=== PATIENT | female | born 1930 | race Caucasian/White ===

== ENCOUNTER 2016-03-29 10:08 | Outpatient (RCR) | payer MEDICARE ==
[2016-01-17 09:06] LABS: INR 2.1 (0.8-1.4); PROTHROMBIN TIME PATIENT 23.4 SEC (12.2-14.7)
[2016-02-16 10:55] LABS: INR 1.9 (0.8-1.4); PROTHROMBIN TIME PATIENT 21.5 SEC (12.2-14.7)
[2016-03-01 09:45] LABS: INR 2.5 (0.8-1.4); PROTHROMBIN TIME PATIENT 26.6 SEC (12.2-14.7)
[~2016-03-29 10:08] MED LIST: ALPR.5T PO; AMLO5TAB2 PO; AMX500CIP PO; ASP81TEC PO; ATR20T PO; CEFD300C3 PO; ESCT10T PO; FURO20TA4 PO; LVT.05T PO; PANT40TA PO; PNT40TEC PO; POTA10CA43 PO; WRF2T PO; WRF5T PO; ZOLP5TAB6 PO; [UNRECOGNIZED DRUG - OTHER]
[2016-03-29 10:32] LABS: INR 2.6 (0.8-1.4); PROTHROMBIN TIME PATIENT 27.6 SEC (12.2-14.7)
== END 2016-04-16 | disposition home or self-care (01) ==
LOC: LAB 10:08
PROVIDERS: ATTEND Family Medicine
DX: I82.409 Acute embolism and thrombosis of unspecified deep veins of unspecified lower extremity (principal); I26.99 Other pulmonary embolism without acute cor pulmonale
CPT/HCPCS: 36415; 85610

== ENCOUNTER 2016-05-26 13:21 | Inpatient (IN) | payer MEDICARE ==
[~2016-05-26] VITALS: Ht 165.1 cm; Wt 72.6 kg
[2016-05-26 13:44] LABS: BASOPHILS % (AUTO) 0 % (0-10); EOSINOPHILS % (AUTO) 0 % (0-10); LYMPHOCYTES # (AUTO) 0.1 X 10^3 (1.0-4.0); LYMPHOCYTES % (AUTO) 1 % (12-44); MEAN CORPUSCULAR HEMOGLOBIN 32 PG (25-34); MEAN CORPUSCULAR HGB CONC 32 G/DL (32-36); MEAN CORPUSCULAR VOLUME 101 FL (80-99); MONOCYTES # (AUTO) 0.3 X 10^3 (0.0-1.0); MONOCYTES % (AUTO) 3 % (0-12); NEUTROPHILS # (AUTO) 8.6 X 10^3 (1.8-7.8); NEUTROPHILS % (AUTO) 96 % (42-75); PLATELET COUNT 150 10^3/uL (130-400); RED BLOOD COUNT 4.03 10^6/uL (4.35-5.85); RED CELL DISTRIBUTION WIDTH 14.4 % (10.0-14.5)
--- NOTE | 2016-05-26 13:44 | ED GI ---
General Chief Complaint: Abdominal/GI Problems Stated Complaint: N/V/D Source of Information: Patient, Family Exam Limitations: No Limitations History of Present Illness Time Seen By Provider: 13:40 Initial Comments The patient's an 86-year-old white female brought by ambulance. She reports that at about 0600 this morning she began to vomit followed very shortly by diarrhea. She has vomited many times mostly of yellow-green bile. There have been many liquid stools. Her family came to check on her and found her rather prostrate and on attempting to help her stand she became very faintly. She has not been exposed to anyone with known gastroenteritis. She reports that she had lemon meringue pie last night but that it was fresh Timing/Duration: 12 Hours Severity/Quality: Moderate Radiation: No Radiation Allergies and Home Medications Allergies Uncoded Allergies: MOLD (Allergy, Unknown, 12/22/10) Home Medications Aspirin 81 Mg Tab.chew, 81 MG PO DAILY, (Reported) Atorvastatin Calcium 20 Mg Tablet, 20 MG PO HS, (Reported) Buspirone HCl 5 Mg Tablet, 5 MG PO TID, (Reported) Furosemide 20 Mg Tablet, 20 MG PO DAILY, (Reported) Levothyroxine Sodium 50 Mcg Tablet, 50 MCG PO DAILY, (Reported) Pantoprazole Sodium 40 Mg Tablet.dr, 40 MG PO daily early, (Reported) Potassium Chloride 20 Meq Tab.er.prt, 20 MEQ PO DAILY, (Reported) Warfarin Sodium 5 Mg Tablet, 5 MG PO every other day, (Reported) Warfarin Sodium 6 Mg Tablet, 6 MG PO every other day, (Reported) Review of Systems Constitutional: see HPI EENTM: No Symptoms Reported Cardiovascular: No Symptoms Reported Gastrointestinal: Diarrhea, Nausea, Vomiting Genitourinary: No Symptoms Reported Musculoskeletal: no symptoms reported Skin: no symptoms reported Psychiatric/Neurological: No Symptoms Reported Endocrine: No Symptoms Reported Hematologic/Lymphatic: No Symptoms Reported Past Bfdgghu-Jtjtqi-Jvdbcy Hx Patient Social History Alcohol Use: Denies Use Recreational Drug Use: No Smoking Status: Never a Smoker 2nd Hand Smoke Exposure: No Recent Hopitalizations: No Immunizations Up To Date Tetanus Booster (TDap): Less than 5yrs Date of Pneumonia Vaccine: Dec 12, 2011 Date of Influenza Vaccine: Nov 07, 2011 Seasonal Allergies Seasonal Allergies: Yes Surgeries HX Surgeries: Yes Respiratory Hx Respiratory Disorders: Yes Respiratory Disorders: Pulmonary Embolism Cardiovascular Hx Cardiac Disorders: Yes Reproductive System Hx Reproductive Disorders: No Genitourinary Hx Genitourinary Disorders: No Gastrointestinal Hx Gastrointestinal Disorders: Yes Gastrointestinal Disorders: Gastroesophageal Reflux Musculoskeletal Hx Musculoskeletal Disorders: No Endocrine Hx Endocrine Disorders: Yes (TAKES THYROID MEDICATION) Endocrine Disorders: Hypothyroidsim HEENT HX ENT Disorders: No Hearing Impairment: Hard of Hearing, Hearing Aide Right, Hearing Aide Left Psychosocial Hx Psychiatric Problems: Yes Behavioral Health Disorders: Anxiety, Depression Blood Transfusions Hx Blood Disorders: Yes Family Medical History Significant Family History: No Pertinent Family Hx Physical Exam Vital Signs VS - Last 72 Hours, by Label 05/26/16 13:25 Temp 98.7 Pulse 89 Resp 18 B/P (MAP) 157/82 Pulse Ox 96 O2 Delivery Room Air Capillary Refill : General Appearance: moderate distress HEENT: normal ENT inspection Neck: full range of motion Respiratory: chest non-tender, lungs clear, normal breath sounds, no respiratory distress, no accessory muscle use Cardiovascular: normal peripheral pulses, regular rate, rhythm, no edema, no gallop, no JVD, no murmur Gastrointestinal: non tender, soft, no organomegaly, no pulsatile mass, abnormal bowel sounds (hypoactive) Extremities: normal range of motion, non-tender, normal inspection, no pedal edema, no calf tenderness, normal capillary refill, pelvis stable Neurologic/Psychiatric: dinkey engineer II-XII nml as tested, no motor/sensory deficits, alert, normal mood/affect, oriented x 3 Skin: normal color, warm/dry Lymphatic: no adenopathy Progress/Results/Core Measures Results/Orders Lab Results Laboratory Tests Test 05/26/16 13:30 Range/Units White Blood Count 9.0 4.3-11.0 10^3/uL Red Blood Count 4.03 L 4.35-5.85 10^6/uL Hemoglobin 12.9 11.5-16.0 G/DL Hematocrit 41 35-52 % Mean Corpuscular Volume 101 H 80-99 FL Mean Corpuscular Hemoglobin 32 25-34 PG Mean Corpuscular Hemoglobin Concent 32 32-36 G/DL Red Cell Distribution Width 14.4 10.0-14.5 % Platelet Count 150 130-400 10^3/uL Mean Platelet Volume 11.0 H 7.4-10.4 FL Neutrophils (%) (Auto) 96 H 42-75 % Lymphocytes (%) (Auto) 1 L 12-44 % Monocytes (%) (Auto) 3 0-12 % Eosinophils (%) (Auto) 0 0-10 % Basophils (%) (Auto) 0 0-10 % Neutrophils # (Auto) 8.6 H 1.8-7.8 X 10^3 Lymphocytes # (Auto) 0.1 L 1.0-4.0 X 10^3 Monocytes # (Auto) 0.3 0.0-1.0 X 10^3 Eosinophils # (Auto) 0.0 0.0-0.3 10^3/uL Basophils # (Auto) 0.0 0.0-0.1 10^3/uL Neutrophils % (Manual) 88 % Lymphocytes % (Manual) 2 % Monocytes % (Manual) 2 % Eosinophils % (Manual) 0 % Basophils % (Manual) 0 % Band Neutrophils 8 % Anisocytosis SLIGHT Macrocytosis SLIGHT Elliptocytes SLIGHT Sodium Level 144 135-145 MMOL/L Potassium Level 3.8 3.6-5.0 MMOL/L Chloride Level 112 H 98-107 MMOL/L Carbon Dioxide Level 22 21-32 MMOL/L Anion Gap 10 5-14 MMOL/L Blood Urea Nitrogen 16 7-18 MG/DL Creatinine 0.92 0.60-1.30 MG/DL Estimat Glomerular Filtration Rate 58 BUN/Creatinine Ratio 17 Glucose Level 150 H 70-105 MG/DL Calcium Level 8.7 8.5-10.1 MG/DL Total Bilirubin 0.4 0.1-1.0 MG/DL Aspartate Amino Transf (AST/SGOT) 21 5-34 U/L Alanine Aminotransferase (ALT/SGPT) 11 0-55 U/L Alkaline Phosphatase 69 40-136 U/L Total Protein 6.4 6.4-8.2 G/DL Albumin 4.2 3.2-4.5 G/DL My Orders Orders - ALEX QUIROZ MD Cbc With Automated Diff (05/26/16 13:22) Comprehensive Metabolic Panel (05/26/16 13:22) Ua Culture If Indicated (05/26/16 13:22) Ns Iv 1000 Ml (Sodium Chloride 0.9%) (05/26/16 13:45) Manual Differential (05/26/16 13:30) Vital Signs/I&O Vital Sign - Last 12Hours 05/26/16 13:25 Temp 98.7 Pulse 89 Resp 18 B/P (MAP) 157/82 Pulse Ox 96 O2 Delivery Room Air Departure Communication Progress Notes [address] Pringle who is on family practice call. Given the age and frailty and ongoing vomiting and diarrhea the patient will be admitted as an observation patient for IV fluids Impression Impression: Primary Impression: gastroenteritis Disposition: ADMITTED INPATIENT Condition: Stable/Unchanged Decision to Admit/Date: May 26, 2016 Time/Decision to Admit Time: 15:14 Departure-Patient Inst. Referrals: ANDREA DUVALL DO (PCP/Family) Primary Care Physician ALEX QUIROZ MD May 26, 2016 13:44
[2016-05-26] MEDS ORDERED: NS IV 1000 ML 1,000 ML IV SCH (13:45)
[2016-05-26 13:59] LABS: ALBUMIN 4.2 G/DL (3.2-4.5); BILIRUBIN,TOTAL 0.4 MG/DL (0.1-1.0); CALCIUM 8.7 MG/DL (8.5-10.1); CREATININE SERUM 0.92 MG/DL (0.60-1.30); POTASSIUM 3.8 MMOL/L (3.6-5.0); TOTAL PROTEIN 6.4 G/DL (6.4-8.2)
[2016-05-26] MEDS ORDERED: WARF6TAB6 PO (14:03)
[2016-05-26] MEDS ORDERED: PANT40TA3 PO (14:03)
[2016-05-26] MEDS ORDERED: ATOR20TA66 PO (14:03)
[2016-05-26] MEDS ORDERED: BUSP5TAB59 PO (14:03)
[2016-05-26] MEDS ORDERED: FURO20TA4 PO (14:03)
[2016-05-26] MEDS ORDERED: LEVO50TA6 PO (14:03)
[2016-05-26] MEDS ORDERED: POTA20TA8 PO (14:03)
[2016-05-26] MEDS ORDERED: ASPI-999 PO (14:03)
[2016-05-26] MEDS ORDERED: WARF-48 PO (14:03)
[2016-05-26 14:13] LABS: ANISOCYTOSIS SLIGHT; BAND NEUTROPHILS 8 %; BASOPHILS % (MANUAL) 0 %; EOSINOPHILS % (MANUAL) 0 %; LYMPHOCYTES % (MANUAL) 2 %; NEUTROPHILS % (MANUAL) 88 %
[2016-05-26] MEDS ORDERED: CATHETER FLUSH 10 ML SYR IV PRN (16:15)
[2016-05-26] MEDS ORDERED: PROMETHAZINE INJ 25 MG/ML (PHENERGAN) AMP IV PRN (16:15)
[2016-05-26 16:20] VITALS: BP 158/75
[2016-05-26] MEDS: LACTATED RINGERS 1,000 ML IV SCH (16:25)
--- NOTE | 2016-05-26 17:09 | History & Physical ---
History of Present Illness History of Present Illness Reason for visit/HPI 86-year-old female with history of DVT and pulmonary embolism admitted on under observation from the ER. patient presented in the ER via EMS for recent fall at her home. No known head trauma. Patient's stepdaughter found her and was concerned. She reports since 6 a.m. today she's felt nauseated and vomited multiple times of bilious in color no blood no diarrhea. Patient denies any chest pain or trouble breathing. Denies any head trauma. Patient is on warfarin for history of DVTs and pulmonary embolisms of which she reports she was here back in February and was here for a month for treatment on the pulmonary embolisms and DVTs. She is unsure what her last INR was. Patient did eat lemon meringue pie that she said was fresh but patient did wonder about food poisoning. Patient reports no confusion and family verifies this. But after a dose of Phenergan patient was a little more confused talking. Phenergan stopped at this time and will use Zofran for any further nausea. Will monitor overnight and currently her lab work was unimpressive and did not meet inpatient criteria. Date of Admission May 26, 2016 at 15:32 I consulted on this patient on 05/26/16 17:00 Attending Physician Romel Fajardo MD Admitting Physician Vickey Azar DO Consult Allergies and Home Medications Allergies Uncoded Allergies: MOLD (Allergy, Unknown, 12/22/10) Home Medications Aspirin 81 Mg Tab.chew, 81 MG PO DAILY, (Reported) Atorvastatin Calcium 20 Mg Tablet, 20 MG PO HS, (Reported) Buspirone HCl 5 Mg Tablet, 5 MG PO TID, (Reported) Furosemide 20 Mg Tablet, 20 MG PO DAILY, (Reported) Levothyroxine Sodium 50 Mcg Tablet, 50 MCG PO DAILY, (Reported) Pantoprazole Sodium 40 Mg Tablet.dr, 40 MG PO daily early, (Reported) Potassium Chloride 20 Meq Tab.er.prt, 20 MEQ PO DAILY, (Reported) Warfarin Sodium 5 Mg Tablet, 5 MG PO every other day, (Reported) Warfarin Sodium 6 Mg Tablet, 6 MG PO every other day, (Reported) Past Jeteaey-Iwalcb-Eizlsq Hx Patient Social History Alcohol Use: Denies Use Recreational Drug Use: No Smoking Status: Never a Smoker 2nd Hand Smoke Exposure: No Recent Foreign Travel: No Contact w/other who traveled: No Recent Hopitalizations: No Recent Infectious Disease Expo: No Immunizations Up To Date Tetanus Booster (TDap): Less than 5yrs Date of Pneumonia Vaccine: Dec 12, 2011 Date of Influenza Vaccine: Nov 07, 2011 Seasonal Allergies Seasonal Allergies: Yes Surgeries HX Surgeries: Yes Respiratory Hx Respiratory Disorders: Yes Cardiovascular Hx Cardiovascular Disorders: Yes Reproductive System Hx Reproductive Disorders: No Genitourinary Hx Genitourinary Disorders: No Gastrointestinal Hx Gastrointestinal Disorders: Yes Gastrointestinal Disorders: Gastroesophageal Reflux Musculoskeletal Hx Musculoskeletal Disorders: No Endocrine Hx Endocrine Disorders: Yes (TAKES THYROID MEDICATION) Endocrine Disorders: Hypothyroidsim HEENT HX ENT Disorders: No Hearing Impairment: Hard of Hearing, Hearing Aide Right, Hearing Aide Left Psychosocial Hx Psychiatric Problems: Yes Behavioral Health Disorders: Anxiety, Depression Blood Transfusions Hx Blood Disorders: Yes Family Medical History Significant Family History: No Pertinent Family Hx Review of Systems Review of Systems General: No Chills, No Night Sweats HEENT: Head Aches, No Visual Changes Pulmonary: No Dyspnea, No Cough Cardiovascular: No: Chest Pain, Palpitations Gastrointestinal: Nausea, Vomiting, No: Abdominal Pain Genitourinary: No Dysuria, No Frequency Musculoskeletal: No: arm pain, leg pain Neurological: Confusion (after phenergan injection.), Weakness Physical Exam Vital Signs Vital Sign - Last 12Hours 05/26/16 13:25 Temp 98.7 Pulse 89 Resp 18 B/P (MAP) 157/82 Pulse Ox 96 O2 Delivery Room Air Capillary Refill : Less Than 3 Seconds General Appearance: No Apparent Distress, WD/WN HEENT: PERRL/EOMI Neck: Non Tender, Supple Respiratory: Chest Non Tender, Lungs Clear Cardiovascular: Regular Rate, Rhythm Gastrointestinal: Normal Bowel Sounds, Non Tender, Soft Rectal: Deferred Extremity: Normal Capillary Refill, Non Tender, No Calf Tenderness, Pedal Edema (1+) Neurologic/Psychiatric: Alert, Oriented x3, No Motor/Sensory Deficits, Normal Mood/Affect Skin: Warm/Dry Lymphatic: No Adenopathy Assessment/Plan Assessment/Plan Assessment/Plan 86 yo F admitted 05/26/16 nausea/vomiting - IVF, zofran prn monitor overnight weakness/fall- PT/OT h/o DVT, pulmonary embolism- continue warfarin- pt will use her own medication. hypothyroidism- continue levothyroxine. DVT ppx: on warfarin Dispo: monitor overnight- plan was to discharge to home tomorrow as she does not meet inpt criteria. Family at bedside do not feel safe with her being discharged to home as she fell yesterday. Problems: Clinical Quality Measures DVT/VTE Risk/Contraindication: Contraindications-Pharm: Other *list below* Other: on coumadin ROMEL FAJARDO MD May 26, 2016 17:09
[2016-05-26 19:45] VITALS: BP 142/65
[2016-05-26] MEDS: ACETAMINOPHEN 500 MG TAB (TYLENOL) PO PRN (20:28)
[2016-05-26] MEDS: ZOLPIDEM 5 MG (AMBIEN) TAB PO SCH (21:00)
[2016-05-26 23:55] VITALS: BP 130/70
[2016-05-27] MEDS: LACTATED RINGERS 1,000 ML IV SCH ×4 (01:04→21:33)
[2016-05-27 04:00] VITALS: BP 119/59
[2016-05-27 05:06] LABS: INR 4.4 (0.8-1.4); PROTHROMBIN TIME PATIENT 42.1 SEC (12.2-14.7)
[2016-05-27 05:12] LABS: CALCIUM 8.3 MG/DL (8.5-10.1); CREATININE SERUM 0.9 MG/DL (0.60-1.30); POTASSIUM 3.9 MMOL/L (3.6-5.0)
--- NOTE | 2016-05-27 07:05 | Progress Note (SOAP) ---
Subjective Subjective 86 yo F with no other overnight events besides the Fever overnight- APAP given which helped a little bit. Pt is wearing a fleece long shirt and pants with covers on her. Will have her change into a hospital gown. No apparent sign of illness on exam. WBC normal. Denies dysuria, urine is clean. Pt denies feeling febrile. She is advancing her diet and doing well. Review of Systems General: No Chills, No Night Sweats HEENT: Head Aches (resolved), No Visual Changes Pulmonary: No Dyspnea, No Cough Cardiovascular: No: Chest Pain, Palpitations Gastrointestinal: No: Abdominal Pain, Nausea, Vomiting Genitourinary: No Dysuria, No Frequency Musculoskeletal: No: arm pain, leg pain Neurological: Weakness, No: Confusion Objective Exam Vital Signs Vital Signs Date Time Temp Pulse Resp B/P (MAP) Pulse Ox O2 Delivery O2 Flow Rate FiO2 05/27/16 11:56 98.4 70 20 134/70 95 Room Air 05/27/16 09:21 99.5 05/27/16 08:02 101.0 05/27/16 07:50 101.4 88 20 109/66 92 Room Air 05/27/16 04:00 99.4 80 17 119/59 92 Room Air 05/26/16 23:55 100.7 87 16 130/70 93 Room Air 05/26/16 21:00 101.2 05/26/16 20:28 101.8 05/26/16 19:45 101.8 83 16 142/65 94 Room Air 05/26/16 16:20 100.6 92 16 158/75 95 Room Air 05/26/16 16:00 98.7 90 18 98 05/26/16 13:25 98.7 89 18 157/82 96 Room Air I & O 05/27/16 07:00 Intake Total 1220 ml Output Total 250 ml Balance 970 ml General Appearance: No Apparent Distress, WD/WN HEENT: PERRL/EOMI Neck: Non Tender, Supple Respiratory: Chest Non Tender, Lungs Clear Cardiovascular: Regular Rate, Rhythm Gastrointestinal: Normal Bowel Sounds, Non Tender, Soft Rectal: Deferred Extremity: Normal Capillary Refill, Non Tender, No Calf Tenderness, Pedal Edema (trace) Neurologic/Psychiatric: Alert, Oriented x3, No Motor/Sensory Deficits, Normal Mood/Affect Skin: Warm/Dry Lymphatic: No Adenopathy Results Lab Laboratory Tests 05/26/16 13:30: White Blood Count 9.0, Red Blood Count 4.03L, Hemoglobin 12.9, Hematocrit 41, Mean Corpuscular Volume 101H, Mean Corpuscular Hemoglobin 32, Mean Corpuscular Hemoglobin Concent 32, Red Cell Distribution Width 14.4, Platelet Count 150, Mean Platelet Volume 11.0H, Neutrophils (%) (Auto) 96H, Lymphocytes (%) (Auto) 1L, Monocytes (%) (Auto) 3, Eosinophils (%) (Auto) 0, Basophils (%) (Auto) 0, Neutrophils # (Auto) 8.6H, Lymphocytes # (Auto) 0.1L, Monocytes # (Auto) 0.3, Eosinophils # (Auto) 0.0, Basophils # (Auto) 0.0, Neutrophils % (Manual) 88, Lymphocytes % (Manual) 2, Monocytes % (Manual) 2, Eosinophils % (Manual) 0, Basophils % (Manual) 0, Band Neutrophils 8, Anisocytosis SLIGHT, Macrocytosis SLIGHT, Elliptocytes SLIGHT, Sodium Level 144, Potassium Level 3.8, Chloride Level 112H, Carbon Dioxide Level 22, Anion Gap 10, Blood Urea Nitrogen 16, Creatinine 0.92, Estimat Glomerular Filtration Rate 58, BUN/Creatinine Ratio 17 , Glucose Level 150H, Calcium Level 8.7, Total Bilirubin 0.4, Aspartate Amino Transf (AST/SGOT) 21, Alanine Aminotransferase (ALT/SGPT) 11, Alkaline Phosphatase 69, Total Protein 6.4, Albumin 4.2 05/27/16 04:10: Sodium Level 144, Potassium Level 3.9, Chloride Level 113H, Carbon Dioxide Level 21, Anion Gap 10, Blood Urea Nitrogen 12, Creatinine 0.90, Estimat Glomerular Filtration Rate 60, BUN/Creatinine Ratio 13, Glucose Level 90, Calcium Level 8.3L, Prothrombin Time 42.1H, INR Comment 4.4H Assessment/Plan Assessment/Plan Assessment/Plan 86 yo F admitted 05/26/16 nausea/vomiting - IVF, zofran prn monitor overnight weakness/fall- PT ordered - patient did well - PT reports pt is independent with activities. No needs for SNU/Rehab h/o DVT, pulmonary embolism- on warfarin- pt will use her own medication. hold warfarin due to elevated INR Supratherapeutic INR- 4.4- hold warfarin. repeat INR in AM hypothyroidism- continue levothyroxine Fever- apap- monitor for infection, UA negative, recent shingles dx- will monitor- we had her change into a hospital gown as she was wearing a fleece outfit and had the covers on her. DVT ppx: on warfarin Dispo: monitor Family at bedside do not feel safe with her being discharged to home as she lives alone. If INR improves tomorrow closer to 3 and she is afebrile will consider discharging to home. Problems: Clinical Quality Measures DVT/VTE Risk/Contraindication: Risk Factor Score Per Nursin RFS Level Per Nursing on Admit: 4+=Very High Contraindications-Pharm: Other *list below* Other: on coumadin JOSE FAJARDO MD May 27, 2016 07:05
[2016-05-27 07:10] LABS: BASOPHILS % (AUTO) 0 % (0-10); EOSINOPHILS % (AUTO) 0 % (0-10); LYMPHOCYTES # (AUTO) 0.5 X 10^3 (1.0-4.0); LYMPHOCYTES % (AUTO) 10 % (12-44); MEAN CORPUSCULAR HEMOGLOBIN 32 PG (25-34); MEAN CORPUSCULAR HGB CONC 32 G/DL (32-36); MEAN CORPUSCULAR VOLUME 102 FL (80-99); MEAN PLATELET VOLUME 11.9 FL (7.4-10.4); MONOCYTES # (AUTO) 0.4 X 10^3 (0.0-1.0); MONOCYTES % (AUTO) 8 % (0-12); NEUTROPHILS # (AUTO) 4.5 X 10^3 (1.8-7.8); NEUTROPHILS % (AUTO) 82 % (42-75); PLATELET COUNT 117 10^3/uL (130-400); RED BLOOD COUNT 3.49 10^6/uL (4.35-5.85); RED CELL DISTRIBUTION WIDTH 14.7 % (10.0-14.5); WHITE BLOOD COUNT 5.5 10^3/uL (4.3-11.0)
[2016-05-27 07:50] VITALS: BP 109/66
[2016-05-27] MEDS: ACETAMINOPHEN 500 MG TAB (TYLENOL) PO PRN ×2 (08:02→19:46)
--- NOTE | 2016-05-27 09:25 | Physical Therapy Evaluation ---
PT Evaluation-General Medical Diagnosis Admission Date May 26, 2016 at 15:32 Medical Diagnosis: gastroenteritis/dehydration Onset Date: May 25, 2016 Therapy Diagnosis Therapy Diagnosis: debility Height/Weight Height (Feet): 5 Height (Inches): 5.00 Weight (Pounds): 160 Weight (Ounces): 0.0 Precautions Precautions/Isolations: Standard Precautions Referral Physician: Pino Reason for Referral: Evaluation/Treatment Medical History Pertinent Medical History: CAD Additional Medical History DVT/PE recent hospital stay Current History 1 day of N&V at home with LOC per family report Reviewed History: Yes Social History Home: Single Level Current Living Status: Alone Entry Into Home: Stairs With Railing PT Steps Into Home: 2 Prior/Core FIM Prior Level of Function Functional [place] Measure 0=Not Assessed/NA 4=Minimal Assistance 1=Total Assistance 5=Supervision or Setup 2=Maximal Assistance 6=Modified [place] 3=Moderate Assistance 7=Complete [place] Bed Mobility: 7 Transfers (B,C,W/C) (FIM): 7 Gait: 7 PT Evaluation-Current Subjective Patient agrees to PT. Patient states, "What a difference a day makes. I feel better." Pain Numeric Pain Scale: 0-No Pain Location: No Pain Reported Objective Patient Orientation: Normal For Age Problem Solving: Fair Attachments: IV ROM/Strength ROM Lower Extremities bilateral LE WFL Strenght Lower Extremities bilateral LE WFL Integumentary/Posture Integumentary refer to nursing notes Bowel Incontinence: No Bladder Incontinence: No Posture WNL Neuromuscular (Tone, Coordination, Reflexes) grossly intact Sensory Vision: Functional Hearing: Hearing Aid/Aides Sensation Right Lower Extremit: Intact Sensation Left Lower Extremity: Intact Transfers Functional [place] Measure 0=Not Assessed/NA 4=Minimal Assistance 1=Total Assistance 5=Supervision or Setup 2=Maximal Assistance 6=Modified [place] 3=Moderate Assistance 7=Complete [place] Transfers (B, C, W/C) (FIM): 7 Scootin Rollin Supine to/from Sit: 7 Sit to/from Stand: 7 Gait Mode of Locomotion: Walk Anticipated Mode of Locomotion: Walk Gait (FIM): 7 Distance (FIM): 3=150 ft Distance: 400' Gait Level of Assist: 7 Gait Assistive Device: None Comments/Gait Description safe and functional Balance Sitting Static: Normal Sitting Dynamic: Normal Standing Static: Normal Standing Dynamic: Normal Assessment/Needs 86 [facility]. [facility] and does not require skilled therapy intervention. Rehab Potential: Good PT Plan Treatment/Plan Treatment Plan: Discontinue PT Pt/Family Agrees w/Plan: Yes Discharge Recommendations Therapy D/C Recommendations: Home Independently Time/GCodes Time In: 845 Time Out: 900 Total Billed Treatment Time: 15 Total Billed Treatment 1 visit EVLowC 15 min G Codes Necessary: Yes PT/OT Therapy GCodes Therapy Functional Limitation: Physical Therapy Test(s)/Tool used to determine: Level of Assistance Scale Functional Limitation-Current Charge Code: MOBCUR Modifier: CH Functional Limitation-Goal Charge Code: MOBGOAL Modifier: CH Functional Limitation-D/C Charge Codes: MOBDC Modifier: CH IVON DE LEÓN PT May 27, 2016 09:25
[2016-05-27 09:26] LABS: BILIRUBIN,URINE NEGATIVE (NEGATIVE); KETONES,URINE NEGATIVE (NEGATIVE); LEUKOCYTE ESTERASE ,URINE NEGATIVE (NEGATIVE); NITRITE,URINE NEGATIVE (NEGATIVE); PH,URINE 5 (5-9); PROTEIN,URINE 2+ (NEGATIVE); UROBILINOGEN,URINE NORMAL (NORMAL)
[2016-05-27 09:59] LABS: WBC,URINE 0 /HPF
[2016-05-27] MEDS ORDERED: PATIENT MAY USE OWN MEDS, ALL MC SCH (10:45)
[2016-05-27] MEDS ORDERED: ASPIRIN 81 MG CHEW (CHILDREN'S ASA) PO SCH (11:00)
[2016-05-27] MEDS ORDERED: LEVOTHYROXINE 50 MCG (LEVOTHROID) TAB PO SCH (11:00)
[2016-05-27] MEDS: LEVOTHYROXINE 50 MCG (LEVOTHROID) TAB PO SCH (11:45)
[2016-05-27] MEDS: ASPIRIN E.C. 81 MG (ECOTRIN) TAB PO SCH (11:46)
[2016-05-27 11:56] VITALS: BP 134/70
[2016-05-27] MEDS ORDERED: busPIRone 5 MG (BUSPAR) TAB PO SCH (13:00)
[2016-05-27] MEDS: busPIRone 5 MG (BUSPAR) TAB PO SCH ×2 (14:04→21:33)
[2016-05-27 15:50] VITALS: BP 134/61
[2016-05-27 19:45] VITALS: BP 149/66
[2016-05-27] MEDS: ONDANSETRON 8 MG (ZOFRAN) ORAL DISSOLVE TAB PO PRN (19:46)
[2016-05-27] MEDS: ZOLPIDEM 5 MG (AMBIEN) TAB PO SCH (20:47)
[2016-05-27 22:45] VITALS: BP 178/80
[2016-05-28 04:00] VITALS: BP 163/77
[2016-05-28 04:45] LABS: INR 3.8 (0.8-1.4); PROTHROMBIN TIME PATIENT 37.6 SEC (12.2-14.7)
[2016-05-28] MEDS: LEVOTHYROXINE 50 MCG (LEVOTHROID) TAB PO SCH (05:33)
[2016-05-28] MEDS: LACTATED RINGERS 1,000 ML IV SCH ×2 (08:13→16:10)
[2016-05-28] MEDS: ASPIRIN E.C. 81 MG (ECOTRIN) TAB PO SCH (08:13)
[2016-05-28] MEDS: busPIRone 5 MG (BUSPAR) TAB PO SCH ×3 (08:13→20:29)
[2016-05-28 08:30] VITALS: BP 165/74
--- NOTE | 2016-05-28 10:33 | Progress Note (SOAP) ---
Subjective Subjective 86 yo F who developed diarrhea yesterday evening x 6 bowel movements- IV access was regained with IVF started again and diet backed off- a few hours after eating she developed the diarrhea. Fevers have decreased. Pt feels like she is doing better besides the diarrhea. She does not want to stay much longer. INR improving. Review of Systems General: No Chills, No Night Sweats HEENT: Head Aches (better), No Visual Changes Pulmonary: No Dyspnea, No Cough Cardiovascular: No: Chest Pain, Palpitations Gastrointestinal: Diarrhea, Nausea, No: Abdominal Pain, Constipation Genitourinary: No Dysuria, No Frequency Musculoskeletal: No: arm pain, leg pain Neurological: Confusion (after phenergan injection.), Weakness Objective Exam Vital Signs Vital Signs Date Time Temp Pulse Resp B/P (MAP) Pulse Ox O2 Delivery O2 Flow Rate FiO2 05/28/16 09:00 Room Air 05/28/16 08:30 98.2 87 18 165/74 97 Room Air 05/28/16 04:00 97.8 83 18 163/77 97 Room Air 05/27/16 22:45 98.6 73 16 178/80 93 Room Air 05/27/16 20:35 99.2 05/27/16 20:16 99.2 05/27/16 19:46 100.8 05/27/16 19:45 100.8 77 16 149/66 97 Room Air 05/27/16 15:50 99.7 75 16 134/61 92 Room Air 05/27/16 11:56 98.4 70 20 134/70 95 Room Air I & O 05/28/16 07:00 Intake Total 1970 ml Output Total 650 ml Balance 1320 ml General Appearance: No Apparent Distress, WD/WN HEENT: PERRL/EOMI Neck: Non Tender, Supple Respiratory: Chest Non Tender, Lungs Clear Cardiovascular: Regular Rate, Rhythm Gastrointestinal: Non Tender, Soft, Abnormal Bowel Sounds (a little hyperactive ) Rectal: Deferred Extremity: Normal Capillary Refill, Non Tender, No Calf Tenderness, Pedal Edema (1+) Neurologic/Psychiatric: Alert, Oriented x3, No Motor/Sensory Deficits, Normal Mood/Affect Skin: Warm/Dry Lymphatic: No Adenopathy Results Lab Laboratory Tests 05/28/16 04:08: Prothrombin Time 37.6H, INR Comment 3.8H Microbiology 05/27/16 C. difficile [facility] Antigen & Toxins - Final, Complete Assessment/Plan Assessment/Plan Assessment/Plan 86 yo F admitted 05/26/16 nausea/vomiting - IVF, zofran prn monitor overnight weakness/fall- PT ordered - patient did well - PT reports pt is independent with activities. No needs for SNU/Rehab h/o DVT, pulmonary embolism- on warfarin- pt will use her own medication. hold warfarin due to elevated INR Supratherapeutic INR- - hold warfarin. repeat INR in AM hypothyroidism- continue levothyroxine Fever- apap- monitor for infection, UA negative, Diarrhea- ivf, ADAT- C.diff negative- monitor stools. DVT ppx: on warfarin Dispo: monitor Continue to hold warfarin until INR below 3. Monitor bowel movements- Cdiff negative. Problems: Clinical Quality Measures DVT/VTE Risk/Contraindication: Risk Factor Score Per Nursin RFS Level Per Nursing on Admit: 4+=Very High Contraindications-Pharm: Other *list below* Other: on coumadin JOSE FAJARDO MD May 28, 2016 10:33
[2016-05-28 12:00] VITALS: BP 138/78
[2016-05-28 16:04] VITALS: BP 165/79
[2016-05-28 20:05] VITALS: BP 166/90
[2016-05-28] MEDS: ZOLPIDEM 5 MG (AMBIEN) TAB PO SCH (20:28)
[2016-05-28] MEDS: ACETAMINOPHEN 500 MG TAB (TYLENOL) PO PRN (20:33)
[2016-05-29] VITALS: BP 155/80
[2016-05-29] MEDS: LACTATED RINGERS 1,000 ML IV SCH ×3 (00:48→17:41)
[2016-05-29] MEDS: LEVOTHYROXINE 50 MCG (LEVOTHROID) TAB PO SCH (05:42)
[2016-05-29] MEDS: ONDANSETRON 8 MG (ZOFRAN) ORAL DISSOLVE TAB PO PRN (05:42)
[2016-05-29 06:13] LABS: PROTHROMBIN TIME PATIENT 31.2 SEC (12.2-14.7)
[2016-05-29 07:31] LABS: MEAN PLATELET VOLUME 11.2 FL (7.4-10.4); RED BLOOD COUNT 3.96 10^6/uL (4.35-5.85); RED CELL DISTRIBUTION WIDTH 14.2 % (10.0-14.5); WHITE BLOOD COUNT 4.4 10^3/uL (4.3-11.0)
--- NOTE | 2016-05-29 07:37 | Progress Note (SOAP) ---
Subjective Subjective/Events-last exam patient had 3 diarrhea stools this a.m. Patient feels nauseous. No more syncope. Diagnosis gastroenteritis. Dehydration. Hypertension monitoring Objective Exam Vital Signs Date Time Temp Pulse Resp B/P (MAP) Pulse Ox O2 Delivery O2 Flow Rate FiO2 05/29/16 00:00 98.7 74 18 155/80 94 Room Air 05/28/16 20:05 98.7 71 18 166/90 96 Room Air 05/28/16 16:04 98.5 73 18 165/79 94 Room Air 05/28/16 12:00 99.5 71 18 138/78 94 Room Air 05/28/16 09:00 Room Air 05/28/16 08:30 98.2 87 18 165/74 97 Room Air I & O 05/29/16 07:00 Intake Total 3050 ml Output Total 670 ml Balance 2380 ml Capillary Refill : Less Than 3 SecondsLess Than 3 Seconds General Appearance: No Apparent Distress, WD/WN HEENT: Normal ENT Inspection Neck: Full Range of Motion, Normal Inspection Respiratory: Chest Non Tender, Lungs Clear, Normal Breath Sounds, No Accessory Muscle Use, No Respiratory Distress Cardiovascular: Regular Rate, Rhythm, No Murmur Gastrointestinal: non tender, soft Results Lab Laboratory Tests 05/29/16 05:50 Laboratory Tests 05/29/16 05:50: White Blood Count 4.4, Red Blood Count 3.96L, Hemoglobin 12.7, Hematocrit 40, Mean Corpuscular Volume 101H, Mean Corpuscular Hemoglobin 32, Mean Corpuscular Hemoglobin Concent 32, Red Cell Distribution Width 14.2, Platelet Count 131, Mean Platelet Volume 11.2H, Prothrombin Time 31.2H, INR Comment 3.0H Microbiology 05/27/16 C. difficile [facility] Antigen & Toxins - Final, Complete Assessment/Plan Assessment/Plan Assess & Plan/Chief Complaint acute gastroenteritis. Dehydration. Patient feeling good this morning had 3 episodes of diarrhea and nauseous. Thrombocytopenia resolving. Hypertension new-onset Clinical Quality Measures DVT/VTE Risk/Contraindication: Risk Factor Score Per Nursin RFS Level Per Nursing on Admit: 4+=Very High Contraindications-Pharm: Other *list below* Other: on coumadin ANDREA DUVALL DO May 29, 2016 07:37
[2016-05-29 07:43] LABS: ANION GAP 10 MMOL/L (5-14); BLOOD UREA NITROGEN 6 MG/DL (7-18); BUN/CREATININE RATIO 7; CALCIUM 8.5 MG/DL (8.5-10.1); CARBON DIOXIDE 20 MMOL/L (21-32); CHLORIDE 111 MMOL/L (98-107); CREATININE SERUM 0.83 MG/DL (0.60-1.30); GFR ESTIMATED > 60; GLUCOSE 91 MG/DL (70-105); POTASSIUM 3.9 MMOL/L (3.6-5.0); SODIUM 141 MMOL/L (135-145)
[2016-05-29 08:00] VITALS: BP 164/80
[2016-05-29] MEDS: busPIRone 5 MG (BUSPAR) TAB PO SCH ×3 (08:22→20:12)
[2016-05-29] MEDS: ASPIRIN E.C. 81 MG (ECOTRIN) TAB PO SCH (08:22)
[2016-05-29] MEDS ORDERED: ZOLP5TAB PO (10:29)
[2016-05-29] MEDS ORDERED: VIT1CAPS14 PO (10:35)
[2016-05-29] MEDS ORDERED: ONDANSETRON 4 MG (ZOFRAN) ORAL DISSOLVE TAB PO PRN (12:15)
[2016-05-29] MEDS: lisINopril 10 MG (PRINIVIL) TAB PO SCH (15:36)
[2016-05-29 16:34] VITALS: BP 152/79
[2016-05-29] MEDS: ZOLPIDEM 5 MG (AMBIEN) TAB PO SCH (21:28)
[2016-05-30 00:05] VITALS: BP_SYST 135; BP_SYST 174; BP_DIAS 62; BP_DIAS 75
[2016-05-30] MEDS: LACTATED RINGERS 1,000 ML IV SCH ×3 (03:45→23:46)
[2016-05-30] MEDS: LEVOTHYROXINE 50 MCG (LEVOTHROID) TAB PO SCH (05:34)
[2016-05-30 06:17] LABS: MEAN PLATELET VOLUME 10.8 FL (7.4-10.4); RED BLOOD COUNT 3.93 10^6/uL (4.35-5.85); RED CELL DISTRIBUTION WIDTH 13.9 % (10.0-14.5); WHITE BLOOD COUNT 3.5 10^3/uL (4.3-11.0)
[2016-05-30 06:32] LABS: INR 2.5 (0.8-1.4); PROTHROMBIN TIME PATIENT 26.6 SEC (12.2-14.7)
[2016-05-30 06:33] LABS: ANION GAP 11 MMOL/L (5-14); BLOOD UREA NITROGEN 5 MG/DL (7-18); BUN/CREATININE RATIO 6; CALCIUM 8.6 MG/DL (8.5-10.1); CARBON DIOXIDE 21 MMOL/L (21-32); CHLORIDE 113 MMOL/L (98-107); GFR ESTIMATED > 60; GLUCOSE 92 MG/DL (70-105); POTASSIUM 3.5 MMOL/L (3.6-5.0); SODIUM 145 MMOL/L (135-145)
--- NOTE | 2016-05-30 07:47 | Progress Note (SOAP) ---
Subjective Subjective/Events-last exam patient feeling better today. No diarrhea or since yesterday at 3 p.m. Patient not eating much. Patient off milk products. Patient wants to go home today may not be ready. Patient may need another 24 hours but she wants to go home Objective Exam Vital Signs Date Time Temp Pulse Resp B/P (MAP) Pulse Ox O2 Delivery O2 Flow Rate FiO2 05/30/16 00:05 98.1 70 20 135/62 97 Room Air 05/29/16 20:20 Room Air 05/29/16 16:34 98.9 82 22 152/79 97 Room Air 05/29/16 09:00 Room Air 05/29/16 08:00 98.6 81 20 164/80 95 Room Air I & O 05/30/16 07:00 Intake Total 4465 ml Output Total 3225 ml Balance 1240 ml Capillary Refill : Less Than 3 SecondsLess Than 3 Seconds General Appearance: No Apparent Distress, WD/WN HEENT: Normal ENT Inspection Neck: Normal Inspection Respiratory: Chest Non Tender, Lungs Clear, No Accessory Muscle Use, No Respiratory Distress Cardiovascular: Regular Rate, Rhythm, No Murmur Gastrointestinal: non tender, soft Results Lab Laboratory Tests 05/30/16 06:10 Laboratory Tests 05/30/16 06:10: White Blood Count 3.5L, Red Blood Count 3.93L, Hemoglobin 12.6, Hematocrit 39, Mean Corpuscular Volume 100H, Mean Corpuscular Hemoglobin 32, Mean Corpuscular Hemoglobin Concent 32, Red Cell Distribution Width 13.9, Platelet Count 133, Mean Platelet Volume 10.8H, Prothrombin Time 26.6H, INR Comment 2.5H, Sodium Level 145, Potassium Level 3.5L, Chloride Level 113H, Carbon Dioxide Level 21, Anion Gap 11, Blood Urea Nitrogen 5L, Creatinine 0.80, Estimat Glomerular Filtration Rate > 60, BUN/Creatinine Ratio 6, Glucose Level 92, Calcium Level 8.6 Microbiology 05/27/16 C. difficile GDH Antigen & Toxins - Final, Complete Assessment/Plan Assessment/Plan Assess & Plan/Chief Complaint acute gastroenteritis. Dehydration. Patient feeling good this morning had 3 episodes of diarrhea and nauseous. Thrombocytopenia resolving. Hypertension new-onset. . . Acute gastroenteritis. Dehydration. Patient feel she is doing better. Patient did not have any diarrhea today. Patient did not each much Nurse to call at 2 o'clock to see how patient is doing Clinical Quality Measures DVT/VTE Risk/Contraindication: Risk Factor Score Per Nursin RFS Level Per Nursing on Admit: 4+=Very High Contraindications-Pharm: Other *list below* Other: on coumadin ANDREA DUVALL DO May 30, 2016 07:46
[2016-05-30 08:00] VITALS: BP 164/77
[2016-05-30] MEDS: lisINopril 10 MG (PRINIVIL) TAB PO SCH (08:15)
[2016-05-30] MEDS: busPIRone 5 MG (BUSPAR) TAB PO SCH ×3 (08:15→20:00)
[2016-05-30] MEDS: ASPIRIN E.C. 81 MG (ECOTRIN) TAB PO SCH (08:16)
[2016-05-30 16:28] VITALS: BP 141/70
[2016-05-30] MEDS: ZOLPIDEM 5 MG (AMBIEN) TAB PO SCH (20:00)
[2016-05-31 00:31] VITALS: BP 138/62
[2016-05-31 05:00] LABS: MEAN PLATELET VOLUME 10.9 FL (7.4-10.4); RED BLOOD COUNT 3.72 10^6/uL (4.35-5.85); RED CELL DISTRIBUTION WIDTH 13.9 % (10.0-14.5); WHITE BLOOD COUNT 3.7 10^3/uL (4.3-11.0)
[2016-05-31 05:10] LABS: INR 1.5 (0.8-1.4); PROTHROMBIN TIME PATIENT 17.4 SEC (12.2-14.7)
[2016-05-31 05:16] LABS: ANION GAP 9 MMOL/L (5-14); BLOOD UREA NITROGEN 8 MG/DL (7-18); BUN/CREATININE RATIO 10; CALCIUM 8.5 MG/DL (8.5-10.1); CARBON DIOXIDE 25 MMOL/L (21-32); CHLORIDE 112 MMOL/L (98-107); CREATININE SERUM 0.81 MG/DL (0.60-1.30); GFR ESTIMATED > 60; GLUCOSE 96 MG/DL (70-105); POTASSIUM 3.5 MMOL/L (3.6-5.0); SODIUM 146 MMOL/L (135-145)
[2016-05-31] MEDS: LEVOTHYROXINE 50 MCG (LEVOTHROID) TAB PO SCH (05:52)
[2016-05-31 07:40] VITALS: BP 169/81
--- NOTE | 2016-05-31 08:20 | Progress Note (SOAP) ---
Subjective Subjective/Events-last exam gastroenteritis. Dehydration. History of DVT and PE. Patient feeling much better. Afebrile. No vomiting or diarrhea. Plan to discharge today Objective Exam Vital Signs Date Time Temp Pulse Resp B/P (MAP) Pulse Ox O2 Delivery O2 Flow Rate FiO2 05/31/16 00:31 98.5 76 16 138/62 94 Room Air 05/30/16 16:28 97.1 70 20 141/70 94 Room Air 05/30/16 08:54 Room Air I & O 05/31/16 07:00 Intake Total 2370 ml Output Total 2300 ml Balance 70 ml Capillary Refill : Less Than 3 SecondsLess Than 3 Seconds General Appearance: No Apparent Distress, WD/WN HEENT: Normal ENT Inspection Neck: Full Range of Motion, Normal Inspection Respiratory: Chest Non Tender, Lungs Clear, Normal Breath Sounds, No Accessory Muscle Use, No Respiratory Distress Cardiovascular: Regular Rate, Rhythm, No Murmur Gastrointestinal: non tender, soft Results Lab Laboratory Tests 05/31/16 04:45 Laboratory Tests 05/31/16 04:45: White Blood Count 3.7L, Red Blood Count 3.72L, Hemoglobin 12.0, Hematocrit 37, Mean Corpuscular Volume 100H, Mean Corpuscular Hemoglobin 32, Mean Corpuscular Hemoglobin Concent 32, Red Cell Distribution Width 13.9, Platelet Count 148, Mean Platelet Volume 10.9H, Prothrombin Time 17.4H, INR Comment 1.5H, Sodium Level 146H, Potassium Level 3.5L, Chloride Level 112H, Carbon Dioxide Level 25, Anion Gap 9, Blood Urea Nitrogen 8, Creatinine 0.81, Estimat Glomerular Filtration Rate > 60, BUN/Creatinine Ratio 10, Glucose Level 96, Calcium Level 8.5 Microbiology 05/27/16 C. difficile GDH Antigen & Toxins - Final, Complete Assessment/Plan Assessment/Plan Assess & Plan/Chief Complaint acute gastroenteritis. Dehydration. Patient feeling good this morning had 3 episodes of diarrhea and nauseous. Thrombocytopenia resolving. Hypertension new-onset. . . Acute gastroenteritis. Dehydration. Patient feel she is doing better. Patient did not have any diarrhea today. Patient did not each much Nurse to call at 2 o'clock to see how patient is doing. . 05/30/16. Acute gastroenteritis resolved the hydration better. Patient doing better. Patient wants to go home. Plan to discharge today Clinical Quality Measures DVT/VTE Risk/Contraindication: Risk Factor Score Per Nursin RFS Level Per Nursing on Admit: 4+=Very High Contraindications-Pharm: Other *list below* Other: on coumadin ANDREA DUVALL DO May 31, 2016 08:20
[2016-05-31] MEDS ORDERED: LISI10TA2 PO (08:29)
[2016-05-31] MEDS: busPIRone 5 MG (BUSPAR) TAB PO SCH ×2 (09:32→13:28)
[2016-05-31] MEDS: ASPIRIN E.C. 81 MG (ECOTRIN) TAB PO SCH (09:32)
[2016-05-31] MEDS: lisINopril 10 MG (PRINIVIL) TAB PO SCH (09:32)
--- NOTE | 2016-05-31 12:57 | Discharge Inst-Home Health ---
Discharge Inst-to Home Health Patient Instructions Patient Instructions/FollowUp: patient had [id number] and to have home health care. Patient Problems: weakness. Blood pressure monitoring. VIA [place], [place] DISCHARGE ORDERS Allergies: Uncoded Allergies: MOLD (Allergy, Unknown, 12/22/10) Height (Feet): 5 Height (Inches): 5.00 Weight (Pounds): 160 Weight (Ounces): 0.0 Home Health Need/Face to Face Reason Pt Homebound weakness. Hypertension. Blood thinness I Have Seen Pt [id number]: Yes Discharged To: Home Diagnosis/Conditions HH Order: acute gastroenteritis. Hypertension. Weakness. home bound gas Consult/Follow Up/New Order *I certify that based on my findings, the following services are medically necessary Home Health Services: Services: Nursing Services My clinical findings support the need for the above services; see Diagnosis. Dicharge Diet: No Restrictions I certify that this patient is under my care and that I, a nurse practitioner or a physician; a photo studio assistant working with me, had a face to face encounter that - meets the physician face to face encounter requirements with this patient as dated. ANDREA DUVALL DO May 31, 2016 12:57
[2016-05-31] MEDS ORDERED: warFARin 3 MG (COUMADIN) TAB PO SCH (18:00)
[2016-06-01] MEDS ORDERED: warFARin 5 MG (COUMADIN) TAB PO SCH (18:00)
--- NOTE | 2016-06-03 07:52 | Discharge Summary ---
Diagnosis/Chief Complaint Date of Admission May 28, 2016 at 14:59 Date of Discharge May 31, 2016 at 14:15 Discharge Date: May 31, 2016 Discharge Diagnosis acute gastroenteritis. Dehydration. New-onset hypertension. GERD. History of falling. Hypothyroid. History of DVT. History of PE. Noninfective gastroenteritis and colitis. Thrombocytopenia Discharge Summary Discharge Physical Examination Allergies: Uncoded Allergies: MOLD (Allergy, Unknown, 12/22/10) Vitals & I&Os Vital Signs Date Time Temp Pulse Resp B/P (MAP) Pulse Ox O2 Delivery O2 Flow Rate FiO2 05/31/16 14:15 05/31/16 08:00 Room Air 05/31/16 07:40 98.6 82 20 96 Hospital Course patient had new onset of hypertension. Patient did improve but was weak. Patient to have home health care area Patient lives alone. To monitor hypertension Labs (last 24 hrs) Laboratory Tests 05/26/16 13:30: White Blood Count 9.0, Red Blood Count 4.03L, Hemoglobin 12.9, Hematocrit 41, Mean Corpuscular Volume 101H, Mean Corpuscular Hemoglobin 32, Mean Corpuscular Hemoglobin Concent 32, Red Cell Distribution Width 14.4, Platelet Count 150, Mean Platelet Volume 11.0H, Neutrophils (%) (Auto) 96H, Lymphocytes (%) (Auto) 1L, Monocytes (%) (Auto) 3, Eosinophils (%) (Auto) 0, Basophils (%) (Auto) 0, Neutrophils # (Auto) 8.6H, Lymphocytes # (Auto) 0.1L, Monocytes # (Auto) 0.3, Eosinophils # (Auto) 0.0, Basophils # (Auto) 0.0, Neutrophils % (Manual) 88, Lymphocytes % (Manual) 2, Monocytes % (Manual) 2, Eosinophils % (Manual) 0, Basophils % (Manual) 0, Band Neutrophils 8, Anisocytosis SLIGHT, Macrocytosis SLIGHT, Elliptocytes SLIGHT, Sodium Level 144, Potassium Level 3.8, Chloride Level 112H, Carbon Dioxide Level 22, Anion Gap 10, Blood Urea Nitrogen 16, Creatinine 0.92, Estimat Glomerular Filtration Rate 58, BUN/Creatinine Ratio 17 , Glucose Level 150H, Calcium Level 8.7, Total Bilirubin 0.4, Aspartate Amino Transf (AST/SGOT) 21, Alanine Aminotransferase (ALT/SGPT) 11, Alkaline Phosphatase 69, Total Protein 6.4, Albumin 4.2 05/27/16 04:10: White Blood Count 5.5, Red Blood Count 3.49L, Hemoglobin 11.3L, Hematocrit 36, Mean Corpuscular Volume 102H, Mean Corpuscular Hemoglobin 32, Mean Corpuscular Hemoglobin Concent 32, Red Cell Distribution Width 14.7H, Platelet Count 117L, Mean Platelet Volume 11.9H, Neutrophils (%) (Auto) 82H, Lymphocytes (%) (Auto) 10L, Monocytes (%) (Auto) 8, Eosinophils (%) (Auto) 0, Basophils (%) (Auto) 0, Neutrophils # (Auto) 4.5, Lymphocytes # (Auto) 0.5L, Monocytes # (Auto) 0.4, Eosinophils # (Auto) 0.0, Basophils # (Auto) 0.0, Sodium Level 144, Potassium Level 3.9, Chloride Level 113H, Carbon Dioxide Level 21, Anion Gap 10, Blood Urea Nitrogen 12, Creatinine 0.90, Estimat Glomerular Filtration Rate 60, BUN/ Creatinine Ratio 13, Glucose Level 90, Calcium Level 8.3L, Prothrombin Time 42.1H, INR Comment 4.4H 05/27/16 09:21: Urine Color YELLOW, Urine Clarity CLEAR, Urine pH 5, Urine Specific [place] 1.020, Urine Protein 2+H, Urine Glucose (UA) NEGATIVE, Urine Ketones NEGATIVE, Urine Nitrite NEGATIVE, Urine Bilirubin NEGATIVE, Urine Urobilinogen NORMAL, Urine Leukocyte Esterase NEGATIVE, Urine RBC (Auto) 2+H, Urine RBC 10-25H, Urine WBC 0, Urine Crystals NONE, Urine Bacteria TRACE, Urine Casts NONE, Urine Mucus NEGATIVE, Urine Culture Indicated NO 05/28/16 04:08: Prothrombin Time 37.6H, INR Comment 3.8H 05/29/16 05:50: White Blood Count 4.4, Red Blood Count 3.96L, Hemoglobin 12.7, Hematocrit 40, Mean Corpuscular Volume 101H, Mean Corpuscular Hemoglobin 32, Mean Corpuscular Hemoglobin Concent 32, Red Cell Distribution Width 14.2, Platelet Count 131, Mean Platelet Volume 11.2H, Prothrombin Time 31.2H, INR Comment 3.0H, Sodium Level 141, Potassium Level 3.9, Chloride Level 111H, Carbon Dioxide Level 20L, Anion Gap 10, Blood Urea Nitrogen 6L, Creatinine 0.83, Estimat Glomerular Filtration Rate > 60, BUN/Creatinine Ratio 7, Glucose Level 91, Calcium Level 8.5 05/30/16 06:10: White Blood Count 3.5L, Red Blood Count 3.93L, Hemoglobin 12.6, Hematocrit 39, Mean Corpuscular Volume 100H, Mean Corpuscular Hemoglobin 32, Mean Corpuscular Hemoglobin Concent 32, Red Cell Distribution Width 13.9, Platelet Count 133, Mean Platelet Volume 10.8H, Prothrombin Time 26.6H, INR Comment 2.5H, Sodium Level 145, Potassium Level 3.5L, Chloride Level 113H, Carbon Dioxide Level 21, Anion Gap 11, Blood Urea Nitrogen 5L, Creatinine 0.80, Estimat Glomerular Filtration Rate > 60, BUN/Creatinine Ratio 6, Glucose Level 92, Calcium Level 8.6 05/31/16 04:45: White Blood Count 3.7L, Red Blood Count 3.72L, Hemoglobin 12.0, Hematocrit 37, Mean Corpuscular Volume 100H, Mean Corpuscular Hemoglobin 32, Mean Corpuscular Hemoglobin Concent 32, Red Cell Distribution Width 13.9, Platelet Count 148, Mean Platelet Volume 10.9H, Prothrombin Time 17.4H, INR Comment 1.5H, Sodium Level 146H, Potassium Level 3.5L, Chloride Level 112H, Carbon Dioxide Level 25, Anion Gap 9, Blood Urea Nitrogen 8, Creatinine 0.81, Estimat Glomerular Filtration Rate > 60, BUN/Creatinine Ratio 10, Glucose Level 96, Calcium Level 8.5 Microbiology 05/27/16 C. difficile GDH Antigen & Toxins - Final, Complete Laboratory Tests 05/26/16 13:30 05/27/16 04:10 05/29/16 05:50 05/30/16 06:10 05/31/16 04:45 Pending Labs Microbiology Date/Time Source Procedure Growth Status 05/27/16 16:14 Stool C. difficile GDH Antigen & Toxins - Final Complete Laboratory Tests 05/26/16 13:30: White Blood Count 9.0, Red Blood Count 4.03, Hemoglobin 12.9, Hematocrit 41, Mean Corpuscular Volume 101, Mean Corpuscular Hemoglobin 32, Mean Corpuscular Hemoglobin Concent 32, Red Cell Distribution Width 14.4, Platelet Count 150, Mean Platelet Volume 11.0, Neutrophils (%) (Auto) 96, Lymphocytes (%) (Auto) 1, Monocytes (%) (Auto) 3, Eosinophils (%) (Auto) 0, Basophils (%) (Auto) 0, Neutrophils # (Auto) 8.6, Lymphocytes # (Auto) 0.1, Monocytes # (Auto) 0.3, Eosinophils # (Auto) 0.0, Basophils # (Auto) 0.0, Neutrophils % (Manual) 88, Lymphocytes % (Manual) 2, Monocytes % (Manual) 2, Eosinophils % (Manual) 0, Basophils % (Manual) 0, Band Neutrophils 8, Anisocytosis SLIGHT, Macrocytosis SLIGHT, Elliptocytes SLIGHT, Sodium Level 144, Potassium Level 3.8, Chloride Level 112, Carbon Dioxide Level 22, Anion Gap 10, Blood Urea Nitrogen 16, Creatinine 0.92, Estimat Glomerular Filtration Rate 58, BUN/Creatinine Ratio 17 , Glucose Level 150, Calcium Level 8.7, Total Bilirubin 0.4, Aspartate Amino Transf (AST/SGOT) 21, Alanine Aminotransferase (ALT/SGPT) 11, Alkaline Phosphatase 69, Total Protein 6.4, Albumin 4.2 05/27/16 04:10: White Blood Count 5.5, Red Blood Count 3.49, Hemoglobin 11.3, Hematocrit 36, Mean Corpuscular Volume 102, Mean Corpuscular Hemoglobin 32, Mean Corpuscular Hemoglobin Concent 32, Red Cell Distribution Width 14.7, Platelet Count 117, Mean Platelet Volume 11.9, Neutrophils (%) (Auto) 82, Lymphocytes (%) (Auto) 10 , Monocytes (%) (Auto) 8, Eosinophils (%) (Auto) 0, Basophils (%) (Auto) 0, Neutrophils # (Auto) 4.5, Lymphocytes # (Auto) 0.5, Monocytes # (Auto) 0.4, Eosinophils # (Auto) 0.0, Basophils # (Auto) 0.0, Sodium Level 144, Potassium Level 3.9, Chloride Level 113, Carbon Dioxide Level 21, Anion Gap 10, Blood Urea Nitrogen 12, Creatinine 0.90, Estimat Glomerular Filtration Rate 60, BUN/ Creatinine Ratio 13, Glucose Level 90, Calcium Level 8.3, Prothrombin Time 42.1 , INR Comment 4.4 05/27/16 09:21: Urine Color YELLOW, Urine Clarity CLEAR, Urine pH 5, Urine Specific [place] 1.020, Urine Protein 2+, Urine Glucose (UA) NEGATIVE, Urine Ketones NEGATIVE, Urine Nitrite NEGATIVE, Urine Bilirubin NEGATIVE, Urine Urobilinogen NORMAL, Urine Leukocyte Esterase NEGATIVE, Urine RBC (Auto) 2+, Urine RBC 10-25, Urine WBC 0, Urine Crystals NONE, Urine Bacteria TRACE, Urine Casts NONE, Urine Mucus NEGATIVE, Urine Culture Indicated NO 05/28/16 04:08: Prothrombin Time 37.6, INR Comment 3.8 05/29/16 05:50: White Blood Count 4.4, Red Blood Count 3.96, Hemoglobin 12.7, Hematocrit 40, Mean Corpuscular Volume 101, Mean Corpuscular Hemoglobin 32, Mean Corpuscular Hemoglobin Concent 32, Red Cell Distribution Width 14.2, Platelet Count 131, Mean Platelet Volume 11.2, Prothrombin Time 31.2, INR Comment 3.0, Sodium Level 141, Potassium Level 3.9, Chloride Level 111, Carbon Dioxide Level 20, Anion Gap 10, Blood Urea Nitrogen 6, Creatinine 0.83, Estimat Glomerular Filtration Rate > 60, BUN/Creatinine Ratio 7, Glucose Level 91, Calcium Level 8.5 05/30/16 06:10: White Blood Count 3.5, Red Blood Count 3.93, Hemoglobin 12.6, Hematocrit 39, Mean Corpuscular Volume 100, Mean Corpuscular Hemoglobin 32, Mean Corpuscular Hemoglobin Concent 32, Red Cell Distribution Width 13.9, Platelet Count 133, Mean Platelet Volume 10.8, Prothrombin Time 26.6, INR Comment 2.5, Sodium Level 145, Potassium Level 3.5, Chloride Level 113, Carbon Dioxide Level 21, Anion Gap 11, Blood Urea Nitrogen 5, Creatinine 0.80, Estimat Glomerular Filtration Rate > 60, BUN/Creatinine Ratio 6, Glucose Level 92, Calcium Level 8.6 05/31/16 04:45: White Blood Count 3.7, Red Blood Count 3.72, Hemoglobin 12.0, Hematocrit 37, Mean Corpuscular Volume 100, Mean Corpuscular Hemoglobin 32, Mean Corpuscular Hemoglobin Concent 32, Red Cell Distribution Width 13.9, Platelet Count 148, Mean Platelet Volume 10.9, Prothrombin Time 17.4, INR Comment 1.5, Sodium Level 146, Potassium Level 3.5, Chloride Level 112, Carbon Dioxide Level 25, Anion Gap 9, Blood Urea Nitrogen 8, Creatinine 0.81, Estimat Glomerular Filtration Rate > 60, BUN/Creatinine Ratio 10, Glucose Level 96, Calcium Level 8.5 Discharge Home Medications: Active Scripts Active Lisinopril 10 Mg Tablet 10 Mg PO DAILY 30 Days Take one tablet daily. Reported Preservision Lutein Softgel (Vit C/Hai AC/Lut/Copper/Znox) 1 Each Capsule 1 Cap PO BID Ambien (Zolpidem Tartrate) 5 Mg Tablet 5 Mg PO HS PRN Levothyroxine Sodium 50 Mcg Tablet 50 Mcg PO DAILY Aspirin 81 Mg Tab.chew 81 Mg PO DAILY Buspirone HCl 5 Mg Tablet 5 Mg PO TID Klor-Con M20 (Potassium Chloride) 20 Meq Tab.er.prt 20 Meq PO DAILY Atorvastatin Calcium 20 Mg Tablet 20 Mg PO HS Warfarin Sodium 6 Mg Tablet 6 Mg PO Q48H ALTERNATES WITH WARFARIN 6 MG Warfarin Sodium 5 Mg Tablet 5 Mg PO Q48H ALTERNATES WITH WARFARIN 6 MG Furosemide 20 Mg Tablet 20 Mg PO DAILY Pantoprazole Sodium 40 Mg Tablet.dr 40 Mg PO DAILY Instructions to patient/family Please see electonic discharge instructions given to patient. Clinical Quality Measures DVT/VTE Risk/Contraindication: Risk Factor Score Per Nursin RFS Level Per Nursing on Admit: 4+=Very High Contraindications-Pharm: Other *list below* Other: on coumadin ANDREA DUVALL DO Jun 03, 2016 07:52
--- OUTSIDE RECORDS SUMMARY | 2016-06-29 22:05 | XMS REPORT | Continuity of Care Document ---
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 STATUS 12/22/2010 Ot V45.72 ACQRD ABSENCE INTESTINE - LARGE/SMALL 12/22/2010 Ot V76.51 SCREEN MAL NEOP-COLON 03/23/2011 Ot 530.81 ESOPHAGEAL REFLUX 01/31/2012 Ot 244.9 HYPOTHYROIDISM NOS 01/31/2012 Ot 272.4 HYPERLIPIDEMIA NEC/NOS 01/31/2012 Ot 275.2 DIS MAGNESIUM METABOLISM 01/31/2012 Ot 276.51 DEHYDRATION 01/31/2012 Ot 276.8 HYPOPOTASSEMIA 01/31/2012 Ot 285.29 ANEMIA OF OTHER CHRONIC DISEASE 01/31/2012 Ot 380.4 IMPACTED CERUMEN 01/31/2012 Ot 389.9 HEARING LOSS NOS 01/31/2012 Ot 401.9 HYPERTENSION NOS 01/31/2012 Ot 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 01/31/2012 Ot 453.40 ACUTE VENOUS EMBOLISM THROMBOSIS UNSP 01/31/2012 Ot 458.29 OTHER IATROGENIC HYPOTENSION 01/31/2012 Ot 486 PNEUMONIA, ORGANISM NOS 01/31/2012 Ot 530.81 ESOPHAGEAL REFLUX 01/31/2012 Ot 716.90 ARTHROPATHY NOS-UNSPEC 01/31/2012 Ot 780.2 SYNCOPE AND COLLAPSE 01/31/2012 Ot 780.79 OTH MALAISE FATIGUE 01/31/2012 Ot E942.0 ADV EFF CARD RHYTH REGUL 01/31/2012 Ot V10.05 HX OF COLONIC MALIGNANCY 01/31/2012 Ot V45.72 ACQRD ABSENCE INTESTINE - LARGE/SMALL 01/31/2012 Ot V45.89 POSTSURGICAL STATES NEC 02/15/2012 Ot 110.1 DERMATOPHYTOSIS OF NAIL 02/15/2012 Ot 244.9 HYPOTHYROIDISM NOS 02/15/2012 Ot 272.4 HYPERLIPIDEMIA NEC/NOS 02/15/2012 Ot 275.2 DIS MAGNESIUM METABOLISM 02/15/2012 Ot 276.8 HYPOPOTASSEMIA 02/15/2012 Ot 285.29 ANEMIA OF OTHER CHRONIC DISEASE 02/15/2012 Ot 401.9 HYPERTENSION NOS 02/15/2012 Ot 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 02/15/2012 Ot 453.40 ACUTE VENOUS EMBOLISM THROMBOSIS UNSP 02/15/2012 Ot 486 PNEUMONIA, ORGANISM NOS 02/15/2012 Ot 530.81 ESOPHAGEAL REFLUX 02/15/2012 Ot 716.90 ARTHROPATHY NOS-UNSPEC 02/15/2012 Ot 733.00 OSTEOPOROSIS NOS 02/15/2012 Ot V10.05 HX OF COLONIC MALIGNANCY 02/15/2012 Ot V45.72 ACQRD ABSENCE INTESTINE - LARGE/SMALL 02/15/2012 Ot V45.89 POSTSURGICAL STATES NEC 06/24/2012 ANDREA DUVALL DO Ot 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 06/24/2012 ANDREA DUVALL DO Ot 453.40 ACUTE VENOUS EMBOLISM THROMBOSIS UNSP 10/02/2012 ANDREA DUVALL DO Ot 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 10/02/2012 ANDREA DUVALL DO Ot 453.40 ACUTE VENOUS EMBOLISM THROMBOSIS UNSP 11/28/2012 SARAH ARGUELLO MD Ot 599.0 URIN TRACT INFECTION NOS 11/28/2012 SARAH ARGUELLO MD Ot 780.4 DIZZINESS AND GIDDINESS 11/28/2012 SARAH ARGUELLO MD Ot V58.61 ANTICOAGULANTS,LT,CURRENT USE 11/28/2012 SARAH ARGUELLO MD Ot V58.69 OTH MED,LT,CURRENT USE 2013 ANDREA DUVALL DO Ot 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 2013 ANDREA DUVALL DO Ot 453.40 ACUTE VENOUS EMBOLISM THROMBOSIS UNSP 05/06/2013 ANDREA DUVALL DO Ot 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 05/06/2013 ANDREA DUVALL DO Ot 453.40 ACUTE VENOUS EMBOLISM THROMBOSIS UNSP 08/31/2013 ANDREA DUVALL DO Ot 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 08/31/2013 GELLENDER DO, ANDREA A Ot 453.40 ACUTE VENOUS EMBOLISM THROMBOSIS UNSP 12/07/2013 GELLENDER DO, ANDREA A Ot 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 12/07/2013 GELLENDER DO, ANDREA A Ot 453.40 ACUTE VENOUS EMBOLISM THROMBOSIS UNSP 02/03/2014 GELLENDER DO, NADREA Kelsey Ot 415.19 02/03/2014 GELLENDER DO, ANDREA Kelsey Ot 453.40 02/06/2014 Ot V76.12 02/06/2014 Ot 719.45 02/06/2014 Ot 722.51 02/06/2014 Ot 780.79 02/06/2014 GELLENDER DO, ANDREA Cole Ot 415.19 02/06/2014 GELLENDER DO, ANDREA Kelsey Ot 453.40 02/27/2014 GELLENDER DO, ANDREA Kelsey Ot V76.12 03/08/2014 GELLENDER DO, ANDREA Cole Ot 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 03/08/2014 GELLENDER DO, ANDREA Cole Ot 453.40 ACUTE VENOUS EMBOLISM THROMBOSIS UNSP 04/08/2014 GELLENDER DO, ANDREA A Ot 415.19 04/08/2014 GELLENDER DO, ANDREA A Ot 453.40 04/08/2014 GELLENDER DO, ANDREA A Ot 415.19 04/08/2014 GELLENDER DO, ANDREA A Ot 453.40 04/08/2014 GELLENDER DO, ANDREA A Ot 415.19 04/08/2014 GELLENDER DO, ANDREA A Ot 453.40 04/09/2014 GELLENDER DO, ANDREA A Ot 415.19 04/09/2014 GELLENDER DO, ANDREA A Ot 453.40 04/09/2014 GELLENDER DO, ANDREA A Ot 415.19 04/09/2014 GELLENDER DO, ANDREA A Ot 453.40 05/19/2014 GELLENDER DO, ANDREA A Ot 415.19 05/19/2014 GELLENDER DO, ANDREA A Ot 453.40 07/07/2014 GELLENDER DO, ANDREA A Ot 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 07/07/2014 GELLENDER DO, ANDREA Cole Ot 453.40 ACUTE VENOUS EMBOLISM THROMBOSIS UNSP 08/03/2014 GELLENDER DO, ANDREA A Ot 415.19 08/03/2014 GELLENDER DO, ANDREA Cole Ot 453.40 08/03/2014 GELLENDER DO, ANDREA A Ot 415.19 08/03/2014 GELLENDER DO, ANDREA A Ot 453.40 08/03/2014 GELLENDER DO, ANDREA A Ot 415.19 08/03/2014 GELLENDER DO, ANDREA Cole Ot 453.40 08/03/2014 Ot V76.12 08/03/2014 Ot 719.45 08/03/2014 Ot 722.51 08/03/2014 Ot 780.79 08/03/2014 GELLENDER DO, ANDREA Cole Ot V76.12 08/03/2014 GELLENDER DO, ANDREA A Ot 415.19 08/03/2014 GELLENDER DO, ANDREA Cole Ot 453.40 08/04/2014 GELLENDER DO, ANDREA A Ot 415.19 08/04/2014 GELLENDER DO, ANDREA Cole Ot 453.40 08/04/2014 GELLENDER DO, ANDREA Cole Ot 415.19 08/04/2014 GELLENDER DO, ANDREA Cole Ot 453.40 08/04/2014 GELLENDER DO, ANDREA A Ot 415.19 08/04/2014 GELLENDER DO, ANDREA A Ot 453.40 09/10/2014 GELLENDER DO, ANDREA A Ot 415.19 09/10/2014 GELLENDER DO, ANDREA Cole Ot 453.40 11/01/2014 GELLENDER DO, ANDREA Cole Ot 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 11/01/2014 GELLENDER DO, ANDREA Cole Ot 453.40 ACUTE VENOUS EMBOLISM THROMBOSIS UNSP 11/03/2014 GELLENDER DO, ANDREA A Ot 415.19 11/03/2014 GELLENDER DO, ANDREA A Ot 453.40 11/03/2014 GELLENDER DO, ANDREA A Ot 415.19 11/03/2014 GELLENDER DO, ANDREA A Ot 453.40 11/04/2014 GELLENDER DO, ANDREA A Ot 415.19 11/04/2014 GELLENDER DO, ANDREA A Ot 453.40 11/18/2014 GELLENDER DO, ANDREA A Ot 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 11/18/2014 GELLENDER DO, ANDREA Cole Ot 453.40 ACUTE VENOUS EMBOLISM THROMBOSIS UNSP 12/01/2014 GELLENDER DO, ANDREA A Ot 415.19 12/01/2014 GELLENDER DO, ANDREA Cole Ot 453.40 12/01/2014 GELLENDER DO, ANDREA Cole Ot 415.19 12/01/2014 GELLENDER DO, ANDREA Cole Ot 453.40 12/01/2014 GELLENDER DO, ANDREA Cole Ot 415.19 12/01/2014 GELLENDER DO, ANDREA Cole Ot 453.40 12/02/2014 GELLENDER DO, ANDREA Cole Ot 415.19 12/02/2014 GELLENDER DO, ANDREA Cole Ot 453.40 01/11/2015 GELLENDER DO, ANDREA Cole Ot I26.99 01/11/2015 GELLENDER DO, ANDREA Cole Ot I82.409 02/11/2015 GELLENDER DO, ANDREA Cole Ot I26.99 02/11/2015 GELLENDER DO, ANDREA Cole Ot I82.409 03/01/2015 GELLENDER DO, ANDREA Cole Ot I26.99 OTHER PULMONARY EMBOLISM WITHOUT ACUTE C 03/01/2015 GELLENDER DO, ANDREA Cole Ot I82.409 ACUTE EMBOLISM AND THOMBOS UNSP DEEP VN 03/22/2015 GELLENDER DO, ANDREA Cole Ot I26.99 03/22/2015 GELLENDER DO, ANDREA Cole Ot I82.409 03/22/2015 GELLENDER DO, ANDREA Cole Ot I26.99 03/22/2015 GELLENDER DO, ANDREA Cole Ot I82.409 03/23/2015 GELLENDER DO, ANDREA Cole Ot I26.99 03/23/2015 GELLENDER DO, ANDREA Cole Ot I82.409 05/11/2015 GELLENDER DO, ANDREA Cole Ot I26.99 05/11/2015 GELLENDER DO, ANDREA Cole Ot I82.409 06/20/2015 GELLENDER DO, ANDREA Cole Ot I26.99 OTHER PULMONARY EMBOLISM WITHOUT ACUTE C 06/20/2015 GELLENDER DO, ANDREA Cole Ot I82.409 ACUTE EMBOLISM AND THOMBOS UNSP DEEP VN 07/13/2015 GELLENDER DO, ANDREA Cole Ot I26.99 OTHER PULMONARY EMBOLISM WITHOUT ACUTE C 07/13/2015 GELLENDER DO, ANDREA Kelsey Ot I82.409 ACUTE EMBOLISM AND THOMBOS UNSP DEEP VN 07/14/2015 GELLENDER DO, ANDREA Cole Ot I26.99 OTHER PULMONARY EMBOLISM WITHOUT ACUTE C 07/14/2015 GELLENDER DO, ANDREA Kelsey Ot I82.409 ACUTE EMBOLISM AND THOMBOS UNSP DEEP VN 08/12/2015 GELLENDER DO, ANDREA Cole Ot I26.99 OTHER PULMONARY EMBOLISM WITHOUT ACUTE C 08/12/2015 GELLENDER DO, ANDREA Cole Ot I82.409 ACUTE EMBOLISM AND THOMBOS UNSP DEEP VN 10/11/2015 GELLENDER DO, ANDREA Cole Ot I26.99 OTHER PULMONARY EMBOLISM WITHOUT ACUTE C 10/11/2015 GELLENDER DO, ANDREA Cole Ot I82.409 ACUTE EMBOLISM AND THOMBOS UNSP DEEP VN 10/15/2015 GELLENDER DO, ANDREA Cole Ot I26.99 OTHER PULMONARY EMBOLISM WITHOUT ACUTE C 10/15/2015 GELLENDER DO, ANDREA Cole Ot I82.409 ACUTE EMBOLISM AND THOMBOS UNSP DEEP VN 10/17/2015 GELLENDER DO, ANDREA Cole Ot I26.99 OTHER PULMONARY EMBOLISM WITHOUT ACUTE C 10/17/2015 GELLENDER DO, ANDREA Cole Ot I82.409 ACUTE EMBOLISM AND THOMBOS UNSP DEEP VN 10/18/2015 GELLENDER DO, ANDREA Cole Ot I26.99 OTHER PULMONARY EMBOLISM WITHOUT ACUTE C 10/18/2015 GELLENDER DO, ANDREA Cole Ot I82.409 ACUTE EMBOLISM AND THOMBOS UNSP DEEP VN 10/18/2015 GELLENDER DO, ANDREA Cole Ot I26.99 OTHER PULMONARY EMBOLISM WITHOUT ACUTE C 10/18/2015 GELLENDER DO, ANDREA Cole Ot I82.409 ACUTE EMBOLISM AND THOMBOS UNSP DEEP VN 10/19/2015 GELLENDER DO, ANDREA Cole Ot I26.99 OTHER PULMONARY EMBOLISM WITHOUT ACUTE C 10/19/2015 GELLENDER DO, ANDREA Cole Ot I82.409 ACUTE EMBOLISM AND THOMBOS UNSP DEEP VN 11/11/2015 GELLENDER DO, ANDREA Cole Ot I26.99 OTHER PULMONARY EMBOLISM WITHOUT ACUTE C 11/11/2015 GELLENDER DO, ANDREA Cole Ot I82.409 ACUTE EMBOLISM AND THOMBOS UNSP DEEP VN 01/13/2016 GELLENDER DO, ANDREA Cole Ot I26.99 OTHER PULMONARY EMBOLISM WITHOUT ACUTE C 01/13/2016 GELLENDER DO, ANDREA Cole Ot I82.409 ACUTE EMBOLISM AND THOMBOS UNSP DEEP VN 01/14/2016 GELLENDER DO, ANDREA Cole Ot I26.99 OTHER PULMONARY EMBOLISM WITHOUT ACUTE C 01/14/2016 GELLENDER DO, ANDREA Cole Ot I82.409 ACUTE EMBOLISM AND THOMBOS UNSP DEEP VN 01/17/2016 GELLENDER DO, ANDREA Cole Ot I26.99 OTHER PULMONARY EMBOLISM WITHOUT ACUTE C 01/17/2016 GELLENDER DO, ANDREA Cole Ot I82.409 ACUTE EMBOLISM AND THOMBOS UNSP DEEP VN 01/17/2016 GELLENDER DO, ANDREA Cole Ot I26.99 OTHER PULMONARY EMBOLISM WITHOUT ACUTE C 01/17/2016 GELLENDER DO, ANDREA Cole Ot I82.409 ACUTE EMBOLISM AND THOMBOS UNSP DEEP VN 01/18/2016 GELLENDER DO, ANDREA Cole Ot I26.99 OTHER PULMONARY EMBOLISM WITHOUT ACUTE C 01/18/2016 GELLENDER DO, ANDREA Cole Ot I82.409 ACUTE EMBOLISM AND THOMBOS UNSP DEEP VN 02/17/2016 GELLENDER DO, ANDREA Cole Ot I26.99 OTHER PULMONARY EMBOLISM WITHOUT ACUTE C 02/17/2016 GELLENDER DO, ANDREA Cole Ot I82.409 ACUTE EMBOLISM AND THOMBOS UNSP DEEP VN 04/16/2016 GELLENDER DO, ANDREA Cole Ot I26.99 OTHER PULMONARY EMBOLISM WITHOUT ACUTE C 04/16/2016 GELLENDER DO, ANDREA Cole Ot I82.409 ACUTE EMBOLISM AND THOMBOS UNSP DEEP VN 04/26/2016 GELLENDER DO, ANDREA Cole Ot I26.99 OTHER PULMONARY EMBOLISM WITHOUT ACUTE C 04/26/2016 GELLENDER DO, ANDREA Cole Ot I82.409 ACUTE EMBOLISM AND THOMBOS UNSP DEEP VN 04/26/2016 GELLENDER DO, ANDREA Cole Ot I26.99 OTHER PULMONARY EMBOLISM WITHOUT ACUTE C 04/26/2016 GELLENDER DO, ANDREA Cole Ot I82.409 ACUTE EMBOLISM AND THOMBOS UNSP DEEP VN 04/26/2016 GELLENDER DO, ANDREA Cole Ot I26.99 OTHER PULMONARY EMBOLISM WITHOUT ACUTE C 04/26/2016 GELLENDER DO, ANDREA Cole Ot I82.409 ACUTE EMBOLISM AND THOMBOS UNSP DEEP VN 05/27/2016 Ot 780.79 OTH MALAISE FATIGUE 05/27/2016 GELLENDER DO, ANDREA Cole Ot V76.12 OTH SCREEN MAMMO-MALIGN NEOPLASM OF RUBI 05/27/2016 GELLENDER DO, ANDREA Cole Ot I26.99 OTHER PULMONARY EMBOLISM WITHOUT ACUTE C 05/27/2016 GELLENDER DO, ANDREA Cole Ot I82.409 ACUTE EMBOLISM AND THOMBOS UNSP DEEP VN 05/29/2016 GELLENDER DO, ANDREA Cole Ot D69.6 THROMBOCYTOPENIA, UNSPECIFIED 05/29/2016 GELLENDER DO, ANDREA Cole Ot E03.9 HYPOTHYROIDISM, UNSPECIFIED 05/29/2016 GELLENDER DO, ANDREA Cole Ot E86.0 DEHYDRATION 05/29/2016 GELLENDER DO, ANDREA Cole Ot F32.9 MAJOR DEPRESSIVE DISORDER, SINGLE EPISOD 05/29/2016 GELLENDER DO, ANDREA Cole Ot F41.9 ANXIETY DISORDER, UNSPECIFIED 05/29/2016 GELLENDER DO, ANDREA Cole Ot H91.93 UNSPECIFIED HEARING LOSS, BILATERAL 05/29/2016 GELLENDER DO, ANDREA Cole Ot I10 ESSENTIAL (PRIMARY) HYPERTENSION 05/29/2016 GELLENDER DO, ANDREA oCle Ot J30.2 OTHER SEASONAL ALLERGIC RHINITIS 05/29/2016 GELLENDER DO, ANDREA Cole Ot K21.9 GASTRO-ESOPHAGEAL REFLUX DISEASE WITHOUT 05/29/2016 GELLENDER DO, ANDREA Cole Ot K52.9 NONINFECTIVE GASTROENTERITIS AND COLITIS 05/29/2016 GELLENDER DO, ANDREA Cole Ot Z79.01 SNF (CURRENT) USE OF ANTICOAGULANT 05/29/2016 GELLENDER DO, ANDREA Cole Ot 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 05/29/2016 GELLENDER DO, ANDREA Cole Ot Z86.718 PERSONAL HISTORY OF OTHER VENOUS THROMBO 05/29/2016 GELLENDER DO, ANDREA Cole Ot Z91.81 HISTORY OF FALLING 05/31/2016 GELLENDER DO, ANDREA Cole Ot D69.6 THROMBOCYTOPENIA, UNSPECIFIED 05/31/2016 GELLENDER DO, ANDREA Cole Ot E03.9 HYPOTHYROIDISM, UNSPECIFIED 05/31/2016 GELLENDER DO, ANDREA Cole Ot E86.0 DEHYDRATION 05/31/2016 GELLENDER DO, ANDREA Cole Ot F32.9 MAJOR DEPRESSIVE DISORDER, SINGLE EPISOD 05/31/2016 GELLENDER DO, ANDREA Cole Ot F41.9 ANXIETY DISORDER, UNSPECIFIED 05/31/2016 GELLENDER DO, ANDREA Cole Ot H91.93 UNSPECIFIED HEARING LOSS, BILATERAL 05/31/2016 GELLENDER DO, ANDREA Cole Ot I10 ESSENTIAL (PRIMARY) HYPERTENSION 05/31/2016 GELLENDER DO, ANDREA Cole Ot J30.2 OTHER SEASONAL ALLERGIC RHINITIS 05/31/2016 GELLENDER DO, ANDREA Cole Ot K21.9 GASTRO-ESOPHAGEAL REFLUX DISEASE WITHOUT 05/31/2016 GELLENDER DO, ANDREA Cole Ot K52.9 NONINFECTIVE GASTROENTERITIS AND COLITIS 05/31/2016 GELLENDER DO, ANDREA Cole Ot Z79.01 SNF (CURRENT) USE OF ANTICOAGULANT 05/31/2016 GELLENDER DO, ANDREA Cole Ot 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 05/31/2016 GELLENDER DO, ANDREA Cole Ot Z86.718 PERSONAL HISTORY OF OTHER VENOUS THROMBO 05/31/2016 GELLENDER DO, ANDREA Cole Ot Z91.81 HISTORY OF FALLING 06/13/2016 GELLENDER DO, ANDREA Cole Ot I26.99 OTHER PULMONARY EMBOLISM WITHOUT ACUTE C 06/13/2016 GELLENDER DO, ANDREA Cole Ot I82.409 ACUTE EMBOLISM AND THOMBOS UNSP DEEP VN 06/14/2016 GELLENDER DO, ANDREA Cole Ot D69.6 THROMBOCYTOPENIA, UNSPECIFIED 06/14/2016 GELLENDER DO, ANDREA Cole Ot E03.9 HYPOTHYROIDISM, UNSPECIFIED 06/14/2016 GELLENDER DO, ANDREA Cole Ot E86.0 DEHYDRATION 06/14/2016 GELLENDER DO, ANDREA Cole Ot F32.9 MAJOR DEPRESSIVE DISORDER, SINGLE EPISOD 06/14/2016 GELLENDER DO, ANDREA Cole Ot F41.9 ANXIETY DISORDER, UNSPECIFIED 06/14/2016 GELLENDER DO, ANDREA Cole Ot H91.93 UNSPECIFIED HEARING LOSS, BILATERAL 06/14/2016 GELLENDER DO, ANDREA Cole Ot I10 ESSENTIAL (PRIMARY) HYPERTENSION 06/14/2016 GELLENDER DO, ANDREA Cole Ot J30.2 OTHER SEASONAL ALLERGIC RHINITIS 06/14/2016 GELLENDER DO, ANDREA Cole Ot K21.9 GASTRO-ESOPHAGEAL REFLUX DISEASE WITHOUT 06/14/2016 GELLENDER DO, ANDREA Cole Ot K52.9 NONINFECTIVE GASTROENTERITIS AND COLITIS 06/14/2016 GELLENDER DO, ANDREA Cole Ot Z79.01 SNF (CURRENT) USE OF ANTICOAGULANT 06/14/2016 GELLENDER DO, ANDREA Cole Ot 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 06/14/2016 GELLENDER DO, ANDREA Cole Ot Z86.718 PERSONAL HISTORY OF OTHER VENOUS THROMBO 06/14/2016 GELLENDER DO, ANDREA Cole Ot Z91.81 HISTORY OF FALLING 06/14/2016 GELLENDER DO, ANDREA Cole Ot D69.6 THROMBOCYTOPENIA, UNSPECIFIED 06/14/2016 GELLENDER DO, ANDREA Cole Ot E03.9 HYPOTHYROIDISM, UNSPECIFIED 06/14/2016 GELLENDER DO, ANDREA Cole Ot E86.0 DEHYDRATION 06/14/2016 [facility], ANDREA Cole Ot F32.9 MAJOR DEPRESSIVE DISORDER, SINGLE EPISOD 06/14/2016 [facility], ANDREA Cole Ot F41.9 ANXIETY DISORDER, UNSPECIFIED 06/14/2016 [facility] Cole Ot H91.93 UNSPECIFIED HEARING LOSS, BILATERAL 06/14/2016 [facility] , ANDREA Cole Ot I10 ESSENTIAL (PRIMARY) HYPERTENSION 06/14/2016 [facility] , ANDREA Cole Ot J30.2 OTHER SEASONAL ALLERGIC RHINITIS 06/14/2016 [facility] AND[facility]A Cole Ot K21.9 GASTRO-ESOPHAGEAL REFLUX DISEASE WITHOUT 06/14/2016 GELLENDER DO, ANDREA Cole Ot K52.9 NONINFECTIVE GASTROENTERITIS AND COLITIS 06/14/2016 [facility] , ANDREA Cole Ot Z79.01 SNF (CURRENT) USE OF ANTICOAGULANT 06/14/[address] [facility] [place], ANDREA Cole Ot 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 06/14/2016 [facility] , ANDREA Cole Ot Z86.718 PERSONAL HISTORY OF OTHER VENOUS THROMBO 06/14/2016 [facility] , ANDREA Cole Ot Z91.81 HISTORY OF FALLING 06/19/2016 Ot 780.79 OTH MALAISE FATIGUE 06/19/2016 [facility] , ANDREA Cole Ot V76.12 OT SCREEN MAMMO-MALIGN NEOPLASM OF RUBI 06/19/2016 [facility] , ANDREA Cole Ot I26.99 OTHER PULMONARY EMBOLISM WITHOUT ACUTE C 06/19/[address] [facility] [place], ANDREA Cole Ot I82.409 ACUTE EMBOLISM AND THOMBOS UNSP DEEP VN Procedures Code Description Performed By Performed On 45.13 OTHER ENDOSCOPY OF INTEST 01/25/2012 45.23 COLONOSCOPY 01/24 86.27 DEBRIDEMENT OF NAIL, NAIL BED OR NAIL FO 02/06/2012 Results Test Result Range PT panel in platelet poor plasma by coagulation assay - 09/17/15 08:35 Prothrombin time (PT) in platelet poor plasma by coagulation assay 33.3 s 12.2-14.7 INR in platelet poor plasma or blood by coagulation assay 3.2 0.8-1.4 PT panel in platelet poor plasma by coagulation assay - 09/24/15 08:31 Prothrombin time (PT) in platelet poor plasma by coagulation assay 36.6 s 12.2-14.7 INR in platelet poor plasma or blood by coagulation assay 3.7 0.8-1.4 PT panel in platelet poor plasma by coagulation assay - 10/01/15 08:29 Prothrombin time (PT) in platelet poor plasma by coagulation assay 16.6 s 12.2-14.7 INR in platelet poor plasma or blood by coagulation assay 1.4 0.8-1.4 PT panel in platelet poor plasma by coagulation assay - 10/06/15 09:16 Prothrombin time (PT) in platelet poor plasma by coagulation assay 18.0 s 12.2-14.7 INR in platelet poor plasma or blood by coagulation assay 1.5 0.8-1.4 PT panel in platelet poor plasma by coagulation assay - 10/11/15 08:26 Prothrombin time (PT) in platelet poor plasma by coagulation assay 20.4 s 12.2-14.7 INR in platelet poor plasma or blood by coagulation assay 1.8 0.8-1.4 PT panel in platelet poor plasma by coagulation assay - 10/15/15 08:13 Prothrombin time (PT) in platelet poor plasma by coagulation assay 24.2 s 12.2-14.7 INR in platelet poor plasma or blood by coagulation assay 2.2 0.8-1.4 PT panel in platelet poor plasma by coagulation assay - 10/29/15 08:14 Prothrombin time (PT) in platelet poor plasma by coagulation assay 24.5 s 12.2-14.7 INR in platelet poor plasma or blood by coagulation assay 2.2 0.8-1.4 PT panel in platelet poor plasma by coagulation assay - 11/19/15 08:26 Prothrombin time (PT) in platelet poor plasma by coagulation assay 25.0 s 12.2-14.7 INR in platelet poor plasma or blood by coagulation assay 2.3 0.8-1.4 PT panel in platelet poor plasma by coagulation assay - 12/03/15 09:48 Prothrombin time (PT) in platelet poor plasma by coagulation assay 23.3 s 12.2-14.7 INR in platelet poor plasma or blood by coagulation assay 2.1 0.8-1.4 PT panel in platelet poor plasma by coagulation assay - 12/17/15 08:37 Prothrombin time (PT) in platelet poor plasma by coagulation assay 28.8 s 12.2-14.7 INR in platelet poor plasma or blood by coagulation assay 2.7 0.8-1.4 PT panel in platelet poor plasma by coagulation assay - 01/17/16 08:50 Prothrombin time (PT) in platelet poor plasma by coagulation assay 23.4 s 12.2-14.7 INR in platelet poor plasma or blood by coagulation assay 2.1 0.8-1.4 PT panel in platelet poor plasma by coagulation assay - 02/16/16 10:27 Prothrombin time (PT) in platelet poor plasma by coagulation assay 21.5 s 12.2-14.7 INR in platelet poor plasma or blood by coagulation assay 1.9 0.8-1.4 PT panel in platelet poor plasma by coagulation assay - 03/01/16 09:23 Prothrombin time (PT) in platelet poor plasma by coagulation assay 26.6 s 12.2-14.7 INR in platelet poor plasma or blood by coagulation assay 2.5 0.8-1.4 PT panel in platelet poor plasma by coagulation assay - 03/29/16 10:10 Prothrombin time (PT) in platelet poor plasma by coagulation assay 27.6 s 12.2-14.7 INR in platelet poor plasma or blood by coagulation assay 2.6 0.8-1.4 PT panel in platelet poor plasma by coagulation assay - 04/25/16 09:34 Prothrombin time (PT) in platelet poor plasma by coagulation assay 25.7 s 12.2-14.7 INR in platelet poor plasma or blood by coagulation assay 2.4 0.8-1.4 PT panel in platelet poor plasma by coagulation assay - 05/22/16 08:07 Prothrombin time (PT) in platelet poor plasma by coagulation assay 27.0 s 12.2-14.7 INR in platelet poor plasma or blood by coagulation assay 2.5 0.8-1.4 Complete blood count (CBC) with automated white blood cell (WBC) differential - 05/26/16 13:30 Blood leukocytes automated count (number/volume) 9.0 10*3/ uL 4.3-11.0 Blood erythrocytes automated count (number/volume) 4.03 10*6 /uL 4.35-5.85 Venous blood hemoglobin measurement (mass/volume) 12.9 g/dL 11.5-16.0 Blood hematocrit (volume fraction) 41 % 35-52 Automated erythrocyte mean corpuscular volume 101 [foz_us] 80-99 Automated erythrocyte mean corpuscular hemoglobin (mass per erythrocyte) 32 pg 25-34 Automated erythrocyte mean corpuscular hemoglobin concentration measurement ( mass/volume) 32 g/dL 32-36 Automated erythrocyte distribution width ratio 14.4 % 10.0-14.5 Automated blood platelet count (count/volume) 150 10*3/uL 130-400 Automated blood platelet mean volume measurement 11.0 [foz_ us] 7.4-10.4 Automated blood neutrophils/100 leukocytes 96 % 42-75 Automated blood lymphocytes/100 leukocytes 1 % 12-44 Blood monocytes/100 leukocytes 3 % 0-12 Automated blood eosinophils/100 leukocytes 0 % 0-10 Automated blood basophils/100 leukocytes 0 % 0-10 Blood neutrophils automated count (number/volume) 8.6 10*3 1.8-7.8 Blood lymphocytes automated count (number/volume) 0.1 10*3 1.0-4.0 Blood monocytes automated count (number/volume) 0.3 10*3 0.0-1.0 Automated eosinophil count 0.0 10*3/uL 0.0-0.3 Automated blood basophil count (count/volume) 0.0 10*3/uL 0.0-0.1 Comprehensive metabolic panel - 05/26/16 13:30 Serum or plasma sodium measurement (moles/volume) 144 mmol/ L 135-145 Serum or plasma potassium measurement (moles/volume) 3.8 mmol/L 3.6-5.0 Serum or plasma chloride measurement (moles/volume) 112 mmol /L 98-107 Carbon dioxide 22 mmol/L 21-32 Serum or plasma anion gap determination (moles/volume) 10 mmol/L 5-14 Serum or plasma urea nitrogen measurement (mass/volume) 16 mg/dL 7-18 Serum or plasma creatinine measurement (mass/volume) 0.92 mg /dL 0.60-1.30 Serum or plasma urea nitrogen/creatinine mass ratio 17 NRG Serum or plasma creatinine measurement with calculation of estimated glomerular filtration rate 58 NRG Serum or plasma glucose measurement (mass/volume) 150 mg/dL 70-105 Serum or plasma calcium measurement (mass/volume) 8.7 mg/dL 8.5-10.1 Serum or plasma total bilirubin measurement (mass/volume) 0.4 mg/dL 0.1-1.0 Serum or plasma alkaline phosphatase measurement (enzymatic activity/volume) 69 U/L 40-136 Serum or plasma aspartate aminotransferase measurement (enzymatic activity/ volume) 21 U/L 5-34 Serum or plasma alanine aminotransferase measurement (enzymatic activity/volume ) 11 U/L 0-55 Serum or plasma protein measurement (mass/volume) 6.4 g/dL 6.4-8.2 Serum or plasma albumin measurement (mass/volume) 4.2 g/dL 3.2-4.5 Blood manual differential performed detection - 05/26/16 13:30 Blood monocytes/100 leukocytes 2 % NRG Manual blood segmented neutrophils/100 leukocytes 88 % NRG Blood band neutrophils/100 leukocytes 8 % NRG Manual blood lymphocytes/100 leukocytes 2 % NRG Manual eosinophils/100 leukocytes in nose 0 % NRG Manual blood basophils/100 leukocytes 0 % NRG Blood anisocytosis detection by light microscopy SLIGHT NRG Blood macrocytes detection by light microscopy SLIGHT NRG Blood ovalocytes detection by light microscopy SLIGHT NRG PT panel in platelet poor plasma by coagulation assay - 05/27/16 04:10 Prothrombin time (PT) in platelet poor plasma by coagulation assay 42.1 s 12.2-14.7 INR in platelet poor plasma or blood by coagulation assay 4.4 0.8-1.4 Whole blood basic metabolic panel - 05/27/16 04:10 Serum or plasma sodium measurement (moles/volume) 144 mmol/ L 135-145 Serum or plasma potassium measurement (moles/volume) 3.9 mmol/L 3.6-5.0 Serum or plasma chloride measurement (moles/volume) 113 mmol /L 98-107 Carbon dioxide 21 mmol/L 21-32 Serum or plasma anion gap determination (moles/volume) 10 mmol/L 5-14 Serum or plasma urea nitrogen measurement (mass/volume) 12 mg/dL 7-18 Serum or plasma creatinine measurement (mass/volume) 0.90 mg /dL 0.60-1.30 Serum or plasma urea nitrogen/creatinine mass ratio 13 NRG Serum or plasma creatinine measurement with calculation of estimated glomerular filtration rate 60 NRG Serum or plasma glucose measurement (mass/volume) 90 mg/dL 70-105 Serum or plasma calcium measurement (mass/volume) 8.3 mg/dL 8.5-10.1 Complete blood count (CBC) with automated white blood cell (WBC) differential - 05/27/16 04:10 Blood leukocytes automated count (number/volume) 5.5 10*3/ uL 4.3-11.0 Blood erythrocytes automated count (number/volume) 3.49 10*6 /uL 4.35-5.85 Venous blood hemoglobin measurement (mass/volume) 11.3 g/dL 11.5-16.0 Blood hematocrit (volume fraction) 36 % 35-52 Automated erythrocyte mean corpuscular volume 102 [foz_us] 80-99 Automated erythrocyte mean corpuscular hemoglobin (mass per erythrocyte) 32 pg 25-34 Automated erythrocyte mean corpuscular hemoglobin concentration measurement ( mass/volume) 32 g/dL 32-36 Automated erythrocyte distribution width ratio 14.7 % 10.0-14.5 Automated blood platelet count (count/volume) 117 10*3/uL 130-400 Automated blood platelet mean volume measurement 11.9 [foz_ us] 7.4-10.4 Automated blood neutrophils/100 leukocytes 82 % 42-75 Automated blood lymphocytes/100 leukocytes 10 % 12-44 Blood monocytes/100 leukocytes 8 % 0-12 Automated blood eosinophils/100 leukocytes 0 % 0-10 Automated blood basophils/100 leukocytes 0 % 0-10 Blood neutrophils automated count (number/volume) 4.5 10*3 1.8-7.8 Blood lymphocytes automated count (number/volume) 0.5 10*3 1.0-4.0 Blood monocytes automated count (number/volume) 0.4 10*3 0.0-1.0 Automated eosinophil count 0.0 10*3/uL 0.0-0.3 Automated blood basophil count (count/volume) 0.0 10*3/uL 0.0-0.1 Complete urinalysis with reflex to culture - 05/27/16 09:21 Urine color determination YELLOW NRG Urine clarity determination CLEAR NRG Urine pH measurement by test strip 5 5- 9 Specific gravity of urine by test strip 1.020 1.016-1.022 Urine protein assay by test strip, semi-quantitative 2+ NEGATIVE Urine glucose detection by automated test strip NEGATIVE NEGATIVE Erythrocytes detection in urine sediment by light microscopy 2+ NEGATIVE Urine ketones detection by automated test strip NEGATIVE NEGATIVE Urine nitrite detection by test strip NEGATIVE NEGATIVE Urine total bilirubin detection by test strip NEGATIVE NEGATIVE Urine urobilinogen measurement by automated test strip (mass/volume) NORMAL NORMAL Urine leukocyte esterase detection by dipstick NEGATIVE NEGATIVE Automated urine sediment erythrocyte count by microscopy (number/high power field) [HPF] NRG Automated urine sediment leukocyte count by microscopy (number/high power field ) 0 [HPF] NRG Bacteria detection in urine sediment by light microscopy TRACE NRG Crystals detection in urine sediment by light microscopy NONE NRG Casts detection in urine sediment by light microscopy NONE NRG Mucus detection in urine sediment by light microscopy NEGATIVE NRG Complete urinalysis with reflex to culture NO NRG [id number] - 05/27/16 16:14 RESULTS NEGATIVE FOR ANTIGEN AND TOXIN A/B NRG PT panel in platelet poor plasma by coagulation assay - 05/28/16 04:08 Prothrombin time (PT) in platelet poor plasma by coagulation assay 37.6 s 12.2-14.7 INR in platelet poor plasma or blood by coagulation assay 3.8 0.8-1.4 PT panel in platelet poor plasma by coagulation assay - 05/29/16 05:50 Prothrombin time (PT) in platelet poor plasma by coagulation assay 31.2 s 12.2-14.7 INR in platelet poor plasma or blood by coagulation assay 3.0 0.8-1.4 Automated blood complete blood count (hemogram) panel - 05/29/16 05:50 Blood leukocytes automated count (number/volume) 4.4 10*3/ uL 4.3-11.0 Blood erythrocytes automated count (number/volume) 3.96 10*6 /uL 4.35-5.85 Venous blood hemoglobin measurement (mass/volume) 12.7 g/dL 11.5-16.0 Blood hematocrit (volume fraction) 40 % 35-52 Automated erythrocyte mean corpuscular volume 101 [foz_us] 80-99 Automated erythrocyte mean corpuscular hemoglobin (mass per erythrocyte) 32 pg 25-34 Automated erythrocyte mean corpuscular hemoglobin concentration measurement ( mass/volume) 32 g/dL 32-36 Automated erythrocyte distribution width ratio 14.2 % 10.0-14.5 Automated blood platelet count (count/volume) 131 10*3/uL 130-400 Automated blood platelet mean volume measurement 11.2 [foz_ us] 7.4-10.4 Whole blood basic metabolic panel - 05/29/16 05:50 Serum or plasma sodium measurement (moles/volume) 141 mmol/ L 135-145 Serum or plasma potassium measurement (moles/volume) 3.9 mmol/L 3.6-5.0 Serum or plasma chloride measurement (moles/volume) 111 mmol /L 98-107 Carbon dioxide 20 mmol/L 21-32 Serum or plasma anion gap determination (moles/volume) 10 mmol/L 5-14 Serum or plasma urea nitrogen measurement (mass/volume) 6 mg /dL 7-18 Serum or plasma creatinine measurement (mass/volume) 0.83 mg /dL 0.60-1.30 Serum or plasma urea nitrogen/creatinine mass ratio 7 NRG Serum or plasma creatinine measurement with calculation of estimated glomerular filtration rate > NRG Serum or plasma glucose measurement (mass/volume) 91 mg/dL 70-105 Serum or plasma calcium measurement (mass/volume) 8.5 mg/dL 8.5-10.1 PT panel in platelet poor plasma by coagulation assay - 05/30/16 06:10 Prothrombin time (PT) in platelet poor plasma by coagulation assay 26.6 s 12.2-14.7 INR in platelet poor plasma or blood by coagulation assay 2.5 0.8-1.4 Whole blood basic metabolic panel - 05/30/16 06:10 Serum or plasma sodium measurement (moles/volume) 145 mmol/ L 135-145 Serum or plasma potassium measurement (moles/volume) 3.5 mmol/L 3.6-5.0 Serum or plasma chloride measurement (moles/volume) 113 mmol /L 98-107 Carbon dioxide 21 mmol/L 21-32 Serum or plasma anion gap determination (moles/volume) 11 mmol/L 5-14 Serum or plasma urea nitrogen measurement (mass/volume) 5 mg /dL 7-18 Serum or plasma creatinine measurement (mass/volume) 0.80 mg /dL 0.60-1.30 Serum or plasma urea nitrogen/creatinine mass ratio 6 NRG Serum or plasma creatinine measurement with calculation of estimated glomerular filtration rate > NRG Serum or plasma glucose measurement (mass/volume) 92 mg/dL 70-105 Serum or plasma calcium measurement (mass/volume) 8.6 mg/dL 8.5-10.1 Automated blood complete blood count (hemogram) panel - 05/30/16 06:10 Blood leukocytes automated count (number/volume) 3.5 10*3/ uL 4.3-11.0 Blood erythrocytes automated count (number/volume) 3.93 10*6 /uL 4.35-5.85 Venous blood hemoglobin measurement (mass/volume) 12.6 g/dL 11.5-16.0 Blood hematocrit (volume fraction) 39 % 35-52 Automated erythrocyte mean corpuscular volume 100 [foz_us] 80-99 Automated erythrocyte mean corpuscular hemoglobin (mass per erythrocyte) 32 pg 25-34 Automated erythrocyte mean corpuscular hemoglobin concentration measurement ( mass/volume) 32 g/dL 32-36 Automated erythrocyte distribution width ratio 13.9 % 10.0-14.5 Automated blood platelet count (count/volume) 133 10*3/uL 130-400 Automated blood platelet mean volume measurement 10.8 [foz_ us] 7.4-10.4 Automated blood complete blood count (hemogram) panel - 05/31/16 04:45 Blood leukocytes automated count (number/volume) 3.7 10*3/ uL 4.3-11.0 Blood erythrocytes automated count (number/volume) 3.72 10*6 /uL 4.35-5.85 Venous blood hemoglobin measurement (mass/volume) 12.0 g/dL 11.5-16.0 Blood hematocrit (volume fraction) 37 % 35-52 Automated erythrocyte mean corpuscular volume 100 [foz_us] 80-99 Automated erythrocyte mean corpuscular hemoglobin (mass per erythrocyte) 32 pg 25-34 Automated erythrocyte mean corpuscular hemoglobin concentration measurement ( mass/volume) 32 g/dL 32-36 Automated erythrocyte distribution width ratio 13.9 % 10.0-14.5 Automated blood platelet count (count/volume) 148 10*3/uL 130-400 Automated blood platelet mean volume measurement 10.9 [foz_ us] 7.4-10.4 PT panel in platelet poor plasma by coagulation assay - 05/31/16 04:45 Prothrombin time (PT) in platelet poor plasma by coagulation assay 17.4 s 12.2-14.7 INR in platelet poor plasma or blood by coagulation assay 1.5 0.8-1.4 Whole blood basic metabolic panel - 05/31/16 04:45 Serum or plasma sodium measurement (moles/volume) 146 mmol/ L 135-145 Serum or plasma potassium measurement (moles/volume) 3.5 mmol/L 3.6-5.0 Serum or plasma chloride measurement (moles/volume) 112 mmol /L 98-107 Carbon dioxide 25 mmol/L 21-32 Serum or plasma anion gap determination (moles/volume) 9 mmol/L 5-14 Serum or plasma urea nitrogen measurement (mass/volume) 8 mg /dL 7-18 Serum or plasma creatinine measurement (mass/volume) 0.81 mg /dL 0.60-1.30 Serum or plasma urea nitrogen/creatinine mass ratio 10 NRG Serum or plasma creatinine measurement with calculation of estimated glomerular filtration rate > NRG Serum or plasma glucose measurement (mass/volume) 96 mg/dL 70-105 Serum or plasma calcium measurement (mass/volume) 8.5 mg/dL 8.5-10.1 PT panel in platelet poor plasma by coagulation assay - 06/14/16 11:14 Prothrombin time (PT) in platelet poor plasma by coagulation assay 25.2 s 12.2-14.7 INR in platelet poor plasma or blood by coagulation assay 2.3 0.8-1.4 PT panel in platelet poor plasma by coagulation assay - 06/19/16 10:52 Prothrombin time (PT) in platelet poor plasma by coagulation assay 22.8 s 12.2-14.7 INR in platelet poor plasma or blood by coagulation assay 2.0 0.8-1.4 Encounters ACCT No. Visit Date/Time Discharge Status Pt. Type Provider Facility Loc./Unit Complaint [id number] 05/28/2016 14:59:00 2016 14:15:00 DIS Outpatient ANDREA DUVALL DO [facility] 4TH GASTROENTERITIS,DEHYDRATION [id number] 03/29/2016 10:08:00 2016 00:01:00 DIS Outpatient ANDREA DUVALL DO [facility] LAB PULMONARY EMBOLISM. DVT [id number] 12/17/2015 08:37:00 2015 00:01:00 DIS Outpatient ANDREA DUVALL DO [facility] LAB PULMONARY EMBOLISM. DVT [id number] 10/11/2015 08:26:00 2015 00:01:00 DIS Outpatient ANDREA DUVALL DO [facility] LAB PULMONARY EMBOLISM. DVT [id number] 06/15/2015 10:22:00 2015 00:01:00 DIS Outpatient ANDREA DUVALL DO [facility] LAB PULMONARY EMBOLISM. DVT [id number] 02/22/2015 09:47:00 2015 00:01:00 DIS Outpatient ANDREA DUVALL DO [facility] LAB PULMONARY EMBOLISM. DVT [id number] 11/11/2014 09:02:00 2014 00:01:00 DIS Outpatient ANDREA DUVALL DO [facility] LAB PULMONARY EMBOLISM. DVT [id number] 10/06/2014 09:47:00 2014 00:01:00 DIS Outpatient ANDREA DUVALL DO [facility] LAB PULMONARY EMBOLISM. DVT [id number] 07/06/2014 09:00:00 2014 00:01:00 DIS Outpatient ANDREA DUVALL DO [facility] LAB PULMONARY EMBOLISM. DVT [id number] 03/02/2014 10:50:00 2014 00:01:00 DIS Outpatient MARTIRBRADSHAWANDREA Kelsey [facility] LAB PULMONARY EMBOLISM. DVT [id number] 02/06/2014 13:16:00 2013 23:59:59 CLS Outpatient ANDREA DUVALL DO [facility] RAD SCREENING [id number] 11/10/2013 08:31:00 2013 00:01:00 DIS Outpatient ANDREA DUVALL DO [facility] LAB PULMONARY EMBOLISM. DVT [id number] 07/28/2013 11:50:00 2013 23:59:59 CLS Outpatient ANDREA DUVALL DO [facility] LAB PULMONARY EMBOLISM. DVT [id number] 04/07/2013 12:13:00 2013 00:01:00 DIS Outpatient ANDREA DUVALL DO [facility] LAB PULMONARY EMBOLISM. DVT [id number] 12/26/2012 12:04:00 2012 00:01:00 DIS Outpatient JADIEL HAYNES ANDREA Kelsey [facility] LAB PULMONARY EMBOLISM. DVT [id number] 11/28/2012 18:47:00 2012 22:08:00 DIS Emergency SARAH ARGUELLO MD [facility] ER DIZZINESS [id number] 08/20/2012 11:45:00 2012 00:01:00 DIS Outpatient JADIEL ANDREA HAYNES [facility] LAB PULMONARY EMBOLISM. DVT [id number] 06/06/2012 11:52:00 2012 00:01:00 DIS Outpatient JADIEL HAYNESANDREA [facility] LAB PULMONARY EMBOLISM. DVT [id number] 06/19/2016 10:44:00 ACT Outpatient JADIEL ANDREA HAYNES [facility] LAB I82.409 [id number] 06/14/2016 11:09:00 ACT Outpatient JADIEL HAYNES ANDREA Cole [facility] LAB PULMONARY EMBOLISM. DVT [id number] 03/02/2015 13:38:00 PEN Preadmit JADIEL ANDREA HAYNES Kelsey [facility] REHAB [id number] 02/06/2014 13:16:00 Document Registration [id number] 01/31/2012 16:34:00 Document Registration [id number] 01/22/2012 08:00:00 Document Registration [id number] 03/23/2011 07:00:00 Document Registration [id number] 01/17/2011 16:33:00 Document Registration [id number] 12/22/2010 07:08:00 Document Registration [id number] 08/08/2010 14:09:00 Document Registration [id number] 2010 13:08:00 Document Registration
--- OUTSIDE RECORDS SUMMARY | 2016-06-29 22:22 | XMS REPORT | Continuity of Care Document ---
Author Author [facility] Organization [facility] Address Unknown Phone Unavailable Allergies Active [...] VENOUS EMBOLISM THROMBOSIS UNSP 02/03/2014 GELLENDER DO, ANDREA Kelsey Ot 415.19 02/03/2014 GELLENDER DO, ANDREA [...] Cole Ot I82.409 03/22/2015 GELLENDER DO, ANDREA Coel Ot I26.99 03/22/2015 GELLENDER DO, ANDREA Cole [...] WITHOUT ACUTE C 10/11/2015 GELLENDER DO, ANDREA Cloe Ot I82.409 ACUTE EMBOLISM AND THOMBOS UNSP [...] ESSENTIAL (PRIMARY) HYPERTENSION 05/29/2016 GELLENDER DO, ANDREA Cole Ot J30.2 OTHER SEASONAL ALLERGIC RHINITIS 05/29/2016 [facility] DO, ANDREA Cole Ot K21.9 GASTRO-ESOPHAGEAL REFLUX DISEASE WITHOUT 05/29/2016 [facility]LLENDER DO, ANDREA Cole Ot K52.9 NONINFECTIVE GASTROENTERITIS AND COLITIS 05/29/2016 [facility] DO, ANDREA Cole Ot Z79.01 RESIDENTIAL (CURRENT) USE OF ANTICOAGULANT 05/29/2016 GELLENDER DO, [...] 05/31/2016 [facility] DO, ANDREA Cole Ot Z79.01 RESIDENTIAL (CURRENT) USE OF ANTICOAGULANT 05/31/2016 GELLENDER DO, [...] 06/14/2016 [facility] DO, ANDREA Cole Ot Z79.01 RESIDENTIAL (CURRENT) USE OF ANTICOAGULANT 06/14/2016 [facility] DO, [...] DO, ANDREA Cole Ot E86.0 DEHYDRATION 06/14/2016 [facility] F32.9 MAJOR DEPRESSIVE DISORDER, SINGLE EPISOD 06/14/2016 [facility] Cole Ot F41.9 ANXIETY DISORDER, UNSPECIFIED 06/14/2016 [facility] Cole Ot H91.93 UNSPECIFIED HEARING LOSS, BILATERAL 06/14/2016 [facility]A Cole Ot I10 ESSENTIAL (PRIMARY) HYPERTENSION 06/14/2016 [facility] ANDREA Cole Ot J30.2 OTHER SEASONAL ALLERGIC RHINITIS 06/14/2016 [facility] Cole Ot K21.9 GASTRO-ESOPHAGEAL REFLUX DISEASE WITHOUT 06/14/2016 [facility] DO, ANDREA Cole Ot K52.9 NONINFECTIVE GASTROENTERITIS AND COLITIS 06/14/2016 [facility]A Cole Ot Z79.01 RESIDENTIAL (CURRENT) USE OF ANTICOAGULANT 06/14/2016 [facility], ANDREA Cole Ot 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 06/14/2016 [facility]A Cole Ot 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 Type Provider Facility Loc./Unit Complaint [id number] 05/28/2016 14:59:00 2016 14:15:00 DIS Outpatient ANDREA DUVALL DO [facility] 4TH GASTROENTERITIS,DEHYDRATION [id number] 03/29/2016 10:08:00 2016 00:01:00 DIS Outpatient ANDREA DUVALL DO [facility] LAB PULMONARY EMBOLISM. DVT [id number] 12/17/2015 08:37:00 2015 00:01:00 DIS Outpatient ANDREA DUVALL DO [facility] LAB PULMONARY EMBOLISM. DVT [id number] 10/11/2015 08:26:00 2015 00:01:00 DIS Outpatient ANDREA DUVALL DO [facility] LAB PULMONARY EMBOLISM. DVT [id number] 06/15/2015 10:22:00 2015 00:01:00 DIS Outpatient ANDREA DUVALL DO [facility] LAB PULMONARY EMBOLISM. DVT [id number] 02/22/2015 09:47:00 2015 00:01:00 DIS Outpatient ANDREA DUVALL DO [facility] LAB PULMONARY EMBOLISM. DVT [id number] 11/11/2014 09:02:00 2014 00:01:00 DIS Outpatient ANDREA DUVALL DO [facility] LAB PULMONARY EMBOLISM. DVT [id number] 10/06/2014 09:47:00 2014 00:01:00 DIS Outpatient ANDREA DUVALL DO [facility] LAB PULMONARY EMBOLISM. DVT [id number] 07/06/2014 09:00:00 2014 00:01:00 DIS Outpatient ANDREA DUVALL DO [facility] LAB PULMONARY EMBOLISM. DVT [id number] 03/02/2014 10:50:00 2014 00:01:00 DIS Outpatient MARTIRBRADSHAWANDREA Kelsey [facility] LAB PULMONARY EMBOLISM. DVT [id number] 02/06/2014 13:16:00 2013 23:59:59 CLS Outpatient ANDREA DUVALL DO [facility] RAD SCREENING [id number] 11/10/2013 08:31:00 2013 00:01:00 DIS Outpatient ANDREA DUVALL DO [facility] LAB PULMONARY EMBOLISM. DVT [id number] 07/28/2013 11:50:00 2013 23:59:59 CLS Outpatient ANDREA DUVALL DO [facility] LAB PULMONARY EMBOLISM. DVT [id number] 04/07/2013 12:13:00 2013 00:01:00 DIS Outpatient ANDREA DUVALL DO [facility] LAB PULMONARY EMBOLISM. DVT [id number] 12/26/2012 12:04:00 2012 00:01:00 DIS Outpatient JADIEL HAYNES ANDREA Kelsey [facility] LAB PULMONARY EMBOLISM. DVT [id number] 11/28/2012 18:47:00 2012 22:08:00 DIS Emergency SARAH ARGUELLO MD [facility] ER DIZZINESS [id number] 08/20/2012 11:45:00 2012 00:01:00 DIS Outpatient JADIEL ANDREA HAYNES [facility] LAB PULMONARY EMBOLISM. DVT [id number] 06/06/2012 11:52:00 2012 00:01:00 DIS Outpatient JADIEL HAYNESANDREA [facility] LAB PULMONARY EMBOLISM. DVT [id number] 06/19/2016 10:44:00 ACT Outpatient JADIEL ANDREA HAYNES [facility] LAB I82.409 [id number] 06/14/2016 11:09:00 ACT Outpatient JADIEL HAYNES ANDREA Cole [facility] LAB PULMONARY EMBOLISM. DVT [id number] 03/02/2015 13:38:00 PEN Preadmit JADIEL ANDREA HAYNES Kelsey [facility] REHAB [id number] 02/06/2014 13:16:00 Document Registration [id number] 01/31/2012 16:34:00 Document Registration [id number] 01/22/2012 08:00:00 Document Registration [id number] 03/23/2011 07:00:00 Document Registration [id number] 01/17/2011 16:33:00 Document Registration [id number] 12/22/2010 07:08:00 Document Registration [id number] 08/08/2010 14:09:00 Document Registration [id number] 2010 13:08:00 Document Registration
== END 2016-05-31 14:15 | disposition home health service (06) | DRG 641 ==
LOC: EDUNIT# 13:21 → ER 13:23 → UNDOADMOB 15:32 → 4TH 15:32 → OBSVTOIN 05-28 14:59 → INTOOBSV 05-28 14:59 → 4TH 05-29 09:47 → UNDODISIN 05-31 14:15
PROVIDERS: ADMIT Family Medicine; ATTEND Family Medicine
DX: E86.0 Dehydration (principal); K52.9 Noninfective gastroenteritis and colitis, unspecified; I10 Essential (primary) hypertension; K21.9 Gastro-esophageal reflux disease without esophagitis; D69.6 Thrombocytopenia, unspecified; E03.9 Hypothyroidism, unspecified; J30.2 Other seasonal allergic rhinitis; H91.93 Unspecified hearing loss, bilateral; F32.9 Major depressive disorder, single episode, unspecified; F41.9 Anxiety disorder, unspecified; Z86.718 Personal history of other venous thrombosis and embolism; Z86.711 Personal history of pulmonary embolism; Z79.01 Long term (current) use of anticoagulants; Z91.81 History of falling
CPT/HCPCS: 36415; 80048; 80053; 81000; 85007; 85025; 85027; 85610; 87324; 87449; G0378

== ENCOUNTER 2016-06-14 11:09 | Outpatient (RCR) | payer MEDICARE ==
[2016-04-25 09:52] LABS: INR 2.4 (0.8-1.4); PROTHROMBIN TIME PATIENT 25.7 SEC (12.2-14.7)
[2016-05-22 08:27] LABS: INR 2.5 (0.8-1.4)
[~2016-06-14 11:09] MED LIST changes: +ASPI-999 PO; +ATOR20TA66 PO; +BUSP5TAB59 PO; +LEVO50TA6 PO; +LISI10TA2 PO; +PANT40TA3 PO; +POTA20TA8 PO; +VIT1CAPS14 PO; +WARF-48 PO; +WARF6TAB6 PO; +ZOLP5TAB PO
[2016-06-14 11:28] LABS: INR 2.3 (0.8-1.4); PROTHROMBIN TIME PATIENT 25.2 SEC (12.2-14.7)
== END 2016-07-11 09:12 | disposition home or self-care (01) ==
LOC: LAB 11:09
PROVIDERS: ATTEND Family Medicine
DX: I82.409 Acute embolism and thrombosis of unspecified deep veins of unspecified lower extremity (principal); I26.99 Other pulmonary embolism without acute cor pulmonale
CPT/HCPCS: 36415; 85610

== ENCOUNTER 2016-09-12 15:17 | Outpatient (RCR) | payer MEDICARE ==
[2016-06-19 11:13] LABS: PROTHROMBIN TIME PATIENT 22.8 SEC (12.2-14.7)
--- NOTE | 2016-06-20 10:20 | Physician Query-Final Dx ---
Clinic Account Progress/Dx Physician Query: Diagnosis gave was I82.409 (unspecified lower ext). Please specify the lower extremity (ie, rt, lt, bilat) thank you Date of Service June 19, 2016 at 10:44 VINOD WONG June 20, 2016 10:20
--- NOTE | 2016-06-23 12:52 | Physician Query-Final Dx ---
VINOD WONG 06/23/16 1252: Clinic Account Progress/Dx Physician Query: Please give diagnosis Specification needed: dx gave I82.409 unspecified. Please give the location of the patients thrombosis. thank you Date of Service June 19, 2016 at 10:44 ANDREA DUVALL DO 06/23/16 1537: Clinic Account Progress/Dx DIAGNOSIS: Diagnosis leg JUDITH,VINOD June 23, 2016 12:52 ANDREA DUVALL DO June 23, 2016 15:37
[2016-06-30 07:37] LABS: INR 2.3 (0.8-1.4); PROTHROMBIN TIME PATIENT 24.8 SEC (12.2-14.7)
[2016-07-11 09:30] LABS: INR 1.8 (0.8-1.4); PROTHROMBIN TIME PATIENT 20.9 SEC (12.2-14.7)
[2016-07-19 10:11] LABS: INR 1.7 (0.8-1.4); PROTHROMBIN TIME PATIENT 19.8 SEC (12.2-14.7)
[2016-07-27 11:14] LABS: PROTHROMBIN TIME PATIENT 22.2 SEC (12.2-14.7)
[2016-08-01 15:42] LABS: PROTHROMBIN TIME PATIENT 22.2 SEC (12.2-14.7)
[2016-08-22 14:01] LABS: PROTHROMBIN TIME PATIENT 22.5 SEC (12.2-14.7)
[2016-09-12 15:39] LABS: INR 1.9 (0.8-1.4); PROTHROMBIN TIME PATIENT 21.5 SEC (12.2-14.7)
== END 2016-09-17 | disposition home or self-care (01) ==
LOC: LAB 15:17
PROVIDERS: ATTEND Family Medicine
DX: I82.409 Acute embolism and thrombosis of unspecified deep veins of unspecified lower extremity (principal)
CPT/HCPCS: 36415; 85610

== ENCOUNTER 2016-10-30 14:30 | Outpatient (RCR) | payer MEDICARE ==
[2016-10-04 13:56] LABS: INR 2.5 (0.8-1.4); PROTHROMBIN TIME PATIENT 26.7 SEC (12.2-14.7)
[2016-10-25 14:21] LABS: INR 1.3 (0.8-1.4); PROTHROMBIN TIME PATIENT 15.9 SEC (12.2-14.7)
[2016-10-30 15:13] LABS: PROTHROMBIN TIME PATIENT 22.5 SEC (12.2-14.7)
== END 2016-11-18 | disposition home or self-care (01) ==
LOC: LAB 14:30
PROVIDERS: ATTEND Family Medicine
DX: I82.409 Acute embolism and thrombosis of unspecified deep veins of unspecified lower extremity (principal)
CPT/HCPCS: 36415; 85610

== ENCOUNTER 2017-02-13 09:25 | Outpatient (RCR) | payer MEDICARE ==
[2016-11-27 14:12] LABS: INR 1.4 (0.8-1.4); PROTHROMBIN TIME PATIENT 17.6 SEC (12.2-14.7)
[2016-12-04 14:56] LABS: INR 2.3 (0.8-1.4); PROTHROMBIN TIME PATIENT 25.6 SEC (12.2-14.7)
[2016-12-25 14:49] LABS: INR 1.8 (0.8-1.4); PROTHROMBIN TIME PATIENT 21.2 SEC (12.2-14.7)
[2017-01-01 14:45] LABS: INR 1.7 (0.8-1.4); PROTHROMBIN TIME PATIENT 20.4 SEC (12.2-14.7)
[2017-01-09 10:45] LABS: INR 1.6 (0.8-1.4); PROTHROMBIN TIME PATIENT 18.8 SEC (12.2-14.7)
[2017-01-15 15:28] LABS: INR 2.6 (0.8-1.4); PROTHROMBIN TIME PATIENT 27.6 SEC (12.2-14.7)
[2017-02-13 09:45] LABS: PROTHROMBIN TIME PATIENT 22.6 SEC (12.2-14.7)
== END 2017-02-25 | disposition home or self-care (01) ==
LOC: LAB 09:25
PROVIDERS: ATTEND Family Medicine
DX: I82.409 Acute embolism and thrombosis of unspecified deep veins of unspecified lower extremity (principal)
CPT/HCPCS: 36415; 85610

== ENCOUNTER 2017-04-21 16:40 | Emergency (ER) | payer MEDICARE ==
[~2017-04-21] VITALS: Ht 165.1 cm; Wt 72.6 kg
[2017-04-21] MEDS ORDERED: NS IV 1000 ML 1,000 ML IV SCH (17:22)
[2017-04-21] MEDS ORDERED: ONDANSETRON 4 MG/2 ML (SDV) Z0FRAN IVP ONE (17:30)
--- NOTE | 2017-04-21 17:41 | ED Respiratory ---
General Chief Complaint: Abdominal/GI Problems Stated Complaint: CHILLS,DIAHRREA Nursing Triage Note: PT REPORTS DIARRHEA AND NAUSEA SINCE YESTERDAY. SHE IS ALSO C/O LETHARGY AND CHILLS. PT IS AFEBRILE. SHE STATES SHE HAS TAKEN IMMODIUM FOR HER DIARRHEA AND HAS HAD IMPROVEMENT. SHE IS CONCERNED SHE HAS THE FLU. Source: patient, other (friend) Exam Limitations: other (difficulty hearing) History of Present Illness Date Seen by Provider: Apr 21, 2017 Time Seen by Provider: 17:37 Initial Comments This 87-year-old white female presents with a history of cough with associated nausea and diarrhea for the last 24 hours. The patient has had associated chills. The patient has improved slightly with Imodium for her diarrhea. The patient denies associated headache, stiff neck or photophobia. a Patient denies productive cough. Patient's had no blood in her stool. Allergies and Home Medications Allergies Uncoded Allergies: MOLD (Allergy, Unknown, 12/22/10) Home Medications Aspirin 81 Mg Tab.chew, 81 MG PO DAILY, (Reported) Atorvastatin Calcium 20 Mg Tablet, 20 MG PO HS, (Reported) Buspirone HCl 5 Mg Tablet, 5 MG PO TID, (Reported) Furosemide 20 Mg Tablet, 20 MG PO DAILY, (Reported) Levothyroxine Sodium 50 Mcg Tablet, 50 MCG PO DAILY, (Reported) Lisinopril 10 Mg Tablet, 10 MG PO DAILY Take one tablet daily. Prescribed by: JOSE MANUEL JONES on 05/31/16 0829 Pantoprazole Sodium 40 Mg Tablet.dr, 40 MG PO DAILY, (Reported) Potassium Chloride 20 Meq Tab.er.prt, 20 MEQ PO DAILY, (Reported) Vit C/Hai AC/Lut/Copper/Znox 1 Each Capsule, 1 CAP PO BID, (Reported) Warfarin Sodium 5 Mg Tablet, 5 MG PO Q48H, (Reported) ALTERNATES WITH WARFARIN 6 MG Warfarin Sodium 6 Mg Tablet, 6 MG PO Q48H, (Reported) ALTERNATES WITH WARFARIN 6 MG Zolpidem Tartrate 5 Mg Tablet, 5 MG PO HS PRN for SLEEP, (Reported) Patient Home Medication List Home Medication List Reviewed: Yes Constitutional: chills, malaise EENTM: No hearing loss, No blurred vision Respiratory: cough Cardiovascular: No chest pain Gastrointestinal: No abdominal pain, diarrhea, nausea, No vomiting Genitourinary: no symptoms reported : No Musculoskeletal: No back pain Skin: No rash Psychiatric/Neurological: No Symptoms Reported Hematologic/Lymphatic: No Symptoms Reported Immunological/Allergic: no symptoms reported Past Utzuesm-Tzyibh-Ckvrsp Hx Patient Social History Alcohol Use: Denies Use Recreational Drug Use: No Smoking Status: Never a Smoker 2nd Hand Smoke Exposure: No Recent Foreign Travel: No Contact w/Someone Who Travel: No Recent Infectious Disease Expo: No Recent Hopitalizations: No Immunizations Up To Date Tetanus Booster (TDap): Less than 5yrs Date of Pneumonia Vaccine: Dec 12, 2011 Date of Influenza Vaccine: Nov 06, 2016 Seasonal Allergies Seasonal Allergies: Yes Surgeries History of Surgeries: Yes (COLONOSCOPY, WILL FILTER ) Surgeries: Abdominal, Appendectomy, Gallbladder, Hysterectomy, Tonsillectomy Respiratory History of Respiratory Disorde: Yes Respiratory Disorders: Pulmonary Embolism Cardiovascular History of Cardiac Disorders: Yes Cardiac Disorders: Chronic Edema/Swelling, Deep Vein Thrombosis, Hypertension Neurological History of Neurological Disord: No Reproductive System Hx Reproductive Disorders: No Genitourinary History of Genitourinary Disor: No Gastrointestinal History of Gastrointestinal Di: Yes Gastrointestinal Disorders: Gastroesophageal Reflux Musculoskeletal History of Musculoskeletal Dis: No Endocrine History of Endocrine Disorders: Yes Endocrine Disorders: Hypothyroidsim HEENT Hearing Impairment: Hard of Hearing, Hearing Aide Right, Hearing Aide Left, Bilateral Hearing Aide Cancer History of Cancer: No Psychosocial History of Psychiatric Problem: Yes Behavioral Health Disorders: Anxiety, Depression Blood Transfusions History of Blood Disorders: Yes Reviewed Nursing Assessment Reviewed/Agree w Nursing PMH: Yes Family Medical History Significant Family History: No Pertinent Family Hx Physical Exam Vital Signs Vital Signs - First Documented 04/21/17 16:55 Temp 97.1 Pulse 84 Resp 16 B/P (MAP) 156/81 (106) Pulse Ox 97 O2 Delivery Room Air Capillary Refill : Less Than 3 Seconds General Appearance: WD/WN, no apparent distress Eyes: Bilateral Eye Normal Inspection HEENT: normal ENT inspection Neck: normal inspection Respiratory: lungs clear, normal breath sounds, no respiratory distress Cardiovascular: normal peripheral pulses, regular rate, rhythm Gastrointestinal: normal bowel sounds, non tender, soft Extremities: normal range of motion, non-tender, normal inspection Neurologic/Psychiatric: no motor/sensory deficits, alert, normal mood/affect Skin: normal color, warm/dry Progress/Results/Core Measures Suspected Sepsis Recent Fever Within 48 Hours: No Infection Criteria Present: None New/Unexplained Altered Menta: No Sepsis Screen: No Definite Risk Sepsis Diagnosis: SIRS Temperature:97.1 Pulse: 84 Respiratory Rate: 16 Laboratory Tests 04/21/17 17:50: White Blood Count 6.5 Blood Pressure 156 /81 Mean: 106 Laboratory Tests 04/21/17 17:50: Creatinine 1.07, Platelet Count 174, Total Bilirubin 0.3 Results/Orders Lab Results Laboratory Tests Test 04/21/17 17:48 04/21/17 17:50 Range/Units Urine Color YELLOW Urine Clarity CLEAR Urine pH 5 5-9 Urine Specific [place] 1.015 L 1.016-1.022 Urine Protein NEGATIVE NEGATIVE Urine Glucose (UA) NEGATIVE NEGATIVE Urine Ketones NEGATIVE NEGATIVE Urine Nitrite NEGATIVE NEGATIVE Urine Bilirubin NEGATIVE NEGATIVE Urine Urobilinogen NORMAL NORMAL MG/DL Urine Leukocyte Esterase NEGATIVE NEGATIVE Urine RBC (Auto) 1+ H NEGATIVE Urine RBC 0-2 /HPF Urine WBC NONE /HPF Urine Squamous Epithelial Cells NONE /HPF Urine Crystals NONE /LPF Urine Bacteria NEGATIVE /HPF Urine Casts NONE /LPF Urine Mucus NEGATIVE /LPF Urine Culture Indicated NO White Blood Count 6.5 4.3-11.0 10^3/uL Red Blood Count 4.08 L 4.35-5.85 10^6/uL Hemoglobin 13.6 11.5-16.0 G/DL Hematocrit 40 35-52 % Mean Corpuscular Volume 98 80-99 FL Mean Corpuscular Hemoglobin 33 25-34 PG Mean Corpuscular Hemoglobin Concent 34 32-36 G/DL Red Cell Distribution Width 13.5 10.0-14.5 % Platelet Count 174 130-400 10^3/uL Mean Platelet Volume 10.7 H 7.4-10.4 FL Neutrophils (%) (Auto) 81 H 42-75 % Lymphocytes (%) (Auto) 13 12-44 % Monocytes (%) (Auto) 6 0-12 % Eosinophils (%) (Auto) 1 0-10 % Basophils (%) (Auto) 0 0-10 % Neutrophils # (Auto) 5.2 1.8-7.8 X 10^3 Lymphocytes # (Auto) 0.8 L 1.0-4.0 X 10^3 Monocytes # (Auto) 0.4 0.0-1.0 X 10^3 Eosinophils # (Auto) 0.0 0.0-0.3 10^3/uL Basophils # (Auto) 0.0 0.0-0.1 10^3/uL Sodium Level 138 135-145 MMOL/L Potassium Level 3.9 3.6-5.0 MMOL/L Chloride Level 105 98-107 MMOL/L Carbon Dioxide Level 24 21-32 MMOL/L Anion Gap 9 5-14 MMOL/L Blood Urea Nitrogen 14 7-18 MG/DL Creatinine 1.07 0.60-1.30 MG/DL Estimat Glomerular Filtration Rate 49 BUN/Creatinine Ratio 13 Glucose Level 119 H 70-105 MG/DL Calcium Level 9.3 8.5-10.1 MG/DL Total Bilirubin 0.3 0.1-1.0 MG/DL Aspartate Amino Transf (AST/SGOT) 21 5-34 U/L Alanine Aminotransferase (ALT/SGPT) 12 0-55 U/L Alkaline Phosphatase 75 40-136 U/L C-Reactive Protein High Sensitivity 0.09 0.00-0.50 MG/DL Total Protein 7.0 6.4-8.2 GM/DL Albumin 4.3 3.2-4.5 GM/DL Micro Results Microbiology 04/21/17 Influenza Types A,B Antigen (DEMOND) - Final, Complete My Orders Orders - ARNULFO KAY MD Influenza A And B Antigens (04/21/17 17:35) Chest 1 View, Ap/Pa Only (04/21/17 18:28) Medications Given in ED Current Medications Medications Dose Ordered Sig/Charmaine Route Start Time Stop Time Status Last Admin Dose Admin Ondansetron HCl 4 mg ONCE ONCE IVP 04/21/17 17:30 04/21/17 17:31 DC 04/21/17 18:07 4 MG Vital Signs/I&O Vital Sign - Last 12Hours 04/21/17 16:55 Temp 97.1 Pulse 84 Resp 16 B/P (MAP) 156/81 (106) Pulse Ox 97 O2 Delivery Room Air Capillary Refill : Less Than 3 Seconds Blood Pressure Mean: 106 Progress Note : Time: 18:38 Progress Note The patient's chest x-ray was unremarkable. Patient's laboratory evaluation was similarly benign. The patient was informed of the results of her evaluation. It was recommended that she rest at home and return if she had a further problems. I asked him to follow-up with her doctor next week. Departure Impression Impression: Primary Impression: Viral gastroenteritis Disposition: 01 HOME, SELF-CARE Condition: Improved Departure-Patient Inst. Decision time for Depature: 18:39 Referrals: ANDREA DUVALL DO (PCP/Family) Primary Care Physician Patient Instructions: VIRAL SYNDROME Add. Discharge Instructions: Rest, fluids, Tylenol. Close follow-up doctor on Sunday. Return if any problems. All discharge instructions reviewed with patient and/or family. Voiced understanding. ARNULFO KAY MD Apr 21, 2017 17:41
[2017-04-21 17:56] LABS: BILIRUBIN,URINE NEGATIVE (NEGATIVE); CLARITY,URINE CLEAR; COLOR,URINE YELLOW; GLUCOSE, URINE (UA) NEGATIVE (NEGATIVE); KETONES,URINE NEGATIVE (NEGATIVE); LEUKOCYTE ESTERASE ,URINE NEGATIVE (NEGATIVE); NITRITE,URINE NEGATIVE (NEGATIVE); PH,URINE 5 (5-9); PROTEIN,URINE NEGATIVE (NEGATIVE); UROBILINOGEN,URINE NORMAL (NORMAL)
[2017-04-21 18:07] LABS: BACTERIA,URINE NEGATIVE /HPF; RBC,URINE 0-2 /HPF
[2017-04-21 18:09] LABS: BASOPHILS % (AUTO) 0 % (0-10); EOSINOPHILS % (AUTO) 1 % (0-10); HEMATOCRIT 40 % (35-52); HEMOGLOBIN 13.6 G/DL (11.5-16.0); LYMPHOCYTES # (AUTO) 0.8 X 10^3 (1.0-4.0); LYMPHOCYTES % (AUTO) 13 % (12-44); MEAN CORPUSCULAR HEMOGLOBIN 33 PG (25-34); MEAN CORPUSCULAR HGB CONC 34 G/DL (32-36); MEAN CORPUSCULAR VOLUME 98 FL (80-99); MEAN PLATELET VOLUME 10.7 FL (7.4-10.4); MONOCYTES # (AUTO) 0.4 X 10^3 (0.0-1.0); MONOCYTES % (AUTO) 6 % (0-12); NEUTROPHILS # (AUTO) 5.2 X 10^3 (1.8-7.8); NEUTROPHILS % (AUTO) 81 % (42-75); PLATELET COUNT 174 10^3/uL (130-400); RED BLOOD COUNT 4.08 10^6/uL (4.35-5.85); RED CELL DISTRIBUTION WIDTH 13.5 % (10.0-14.5); WHITE BLOOD COUNT 6.5 10^3/uL (4.3-11.0)
[2017-04-21 18:24] LABS: ALBUMIN 4.3 GM/DL (3.2-4.5); BILIRUBIN,TOTAL 0.3 MG/DL (0.1-1.0); CALCIUM 9.3 MG/DL (8.5-10.1); CREATININE SERUM 1.07 MG/DL (0.60-1.30); POTASSIUM 3.9 MMOL/L (3.6-5.0)
[2017-04-21 18:56] VITALS: BP 140/74
--- NOTE | 2017-04-21 19:17 | Diagnostic Imaging Report ---
Clinical indication: Patient with nausea, diarrhea, chills and weakness since yesterday. Exam: Portable chest x-ray upright view. Comparison: Portable chest x-ray dated 02/07/2012. Findings: Stable mild bibasilar scarring. Otherwise, lungs are clear. Pulmonary vasculature and cardiac silhouettes within normal limits. There are degenerative spurs seen throughout the spine. Impression: 1: Stable chest x-ray exam with no interval radiographic evidence of acute cardiopulmonary process. 2: Stable mild bibasilar scarring. Dictated by: Dictated on workstation # [id number]
== END 2017-04-21 18:56 | disposition home or self-care (01) ==
LOC: EDUNIT# 16:40 → ER 16:42
DX: A08.4 Viral intestinal infection, unspecified (principal); F41.9 Anxiety disorder, unspecified; F32.9 Major depressive disorder, single episode, unspecified; E03.9 Hypothyroidism, unspecified; K21.9 Gastro-esophageal reflux disease without esophagitis; I10 Essential (primary) hypertension; Z79.82 Long term (current) use of aspirin; Z79.01 Long term (current) use of anticoagulants; Z90.89 Acquired absence of other organs; Z90.49 Acquired absence of other specified parts of digestive tract; Z86.718 Personal history of other venous thrombosis and embolism
CPT/HCPCS: 36415; 71045; 80053; 81000; 85025; 86141; 87804

== ENCOUNTER 2017-05-14 13:07 | Outpatient (RCR) | payer MEDICARE ==
[2017-03-12 13:59] LABS: INR 2.7 (0.8-1.4); PROTHROMBIN TIME PATIENT 28.3 SEC (12.2-14.7)
[2017-04-08 15:45] LABS: INR 2.5 (0.8-1.4); PROTHROMBIN TIME PATIENT 26.5 SEC (12.2-14.7)
[~2017-05-14 13:07] MED LIST changes: +WARF6TAB49 PO; -WARF6TAB6 PO
[2017-05-14 13:35] LABS: INR 3.4 (0.8-1.4); PROTHROMBIN TIME PATIENT 34.3 SEC (12.2-14.7)
[2017-06-04 15:00] LABS: INR 2.2 (0.8-1.4); PROTHROMBIN TIME PATIENT 24.7 SEC (12.2-14.7)
== END 2017-06-10 | disposition home or self-care (01) ==
LOC: LAB 13:07
PROVIDERS: ATTEND Family Medicine
DX: I82.409 Acute embolism and thrombosis of unspecified deep veins of unspecified lower extremity (principal)
CPT/HCPCS: 36415; 85610

== ENCOUNTER → 2017-07-02 | Outpatient (CLI) | payer MEDICARE ==
--- NOTE | 2017-07-02 15:42 | Diagnostic Imaging Report ---
PROCEDURE: CT urinary tract, rule out kidney stone. TECHNIQUE: Multiple contiguous axial images were obtained through the abdomen and pelvis without the use of intravenous contrast. INDICATION: Right lower quadrant pain and hematuria. COMPARISON: 01/30/2012. FINDINGS: There is mild bilateral basilar atelectasis. There is no pericardial or pleural fluid. The liver appears unremarkable. Gallbladder is not visualized. There is no biliary dilatation. The pancreas, spleen, and adrenal glands appear unremarkable. There are a few calcified splenic granulomas present. There is mild renal atrophy and cortical thinning. No urinary tract calcification or obstructive change is seen. There is mild thickening of the bladder wall which may be due to incomplete distention; however, there is some suggestion of mild hazy inflammatory stranding around the bladder which could be secondary to cystitis. Correlate clinically. Uterus is absent. There is diverticulosis of the colon without evidence of diverticulitis. Diffuse thickening of the colonic wall which may be due to incomplete distention and/or to chronic diverticular changes although a subtle diffuse colitis would be difficult to entirely exclude.. There is no evidence of appendicitis or other focal inflammatory process. There is no free fluid, free air, or adenopathy. There is atherosclerosis of the abdominal aorta without aneurysm. There is an inferior vena cava filter present. There are degenerative changes in the spine. IMPRESSION: 1. There is mild diffuse bladder wall thickening which can be seen with incomplete distention; however, there is suggestion of some hazy inflammatory change surrounding the bladder which could be due to cystitis. Correlate clinically. 2. Diffuse thickening of the colonic wall is probably due to incomplete distention; however, nonspecific diffuse colitis would be difficult to entirely exclude. Correlate clinically. There is diverticular disease without evidence of diverticulitis. 3. No additional acute abnormality is suspected. Dictated by: Dictated on workstation # [id number]
[2017-07-02 16:22] LABS: INR 2.3 (0.8-1.4); PROTHROMBIN TIME PATIENT 25.4 SEC (12.2-14.7)
== END ==
LOC: RAD 14:57
PROVIDERS: ATTEND Family Medicine
DX: N32.89 Other specified disorders of bladder (principal); K63.89 Other specified diseases of intestine
CPT/HCPCS: 36415; 74176; 85610

== ENCOUNTER → 2017-09-04 | Outpatient (CLI) | payer MEDICARE | LOC: CARD 10:28 | PROVIDERS: ATTEND Internal Medicine Cardiovascular Disease | DX: I70.213 Atherosclerosis of native arteries of extremities with intermittent claudication, bilateral legs (principal); I10 Essential (primary) hypertension; R06.02 Shortness of breath; I08.0 Rheumatic disorders of both mitral and aortic valves | CPT/HCPCS: 93306 ==

== ENCOUNTER → 2017-09-11 | Outpatient (CLI) | payer MEDICARE | LOC: RAD 12:08 | PROVIDERS: ATTEND Internal Medicine Cardiovascular Disease | DX: I70.213 Atherosclerosis of native arteries of extremities with intermittent claudication, bilateral legs (principal); R06.02 Shortness of breath; I10 Essential (primary) hypertension ==

== ENCOUNTER 2017-10-23 12:53 | Outpatient (RCR) | payer MEDICARE ==
[2017-07-29 15:46] LABS: INR 2.5 (0.8-1.4); PROTHROMBIN TIME PATIENT 27.3 SEC (12.2-14.7)
[2017-08-26 14:48] LABS: INR 2.2 (0.8-1.4); PROTHROMBIN TIME PATIENT 24.2 SEC (12.2-14.7)
[2017-09-23 14:20] LABS: INR 2.2 (0.8-1.4); PROTHROMBIN TIME PATIENT 24.5 SEC (12.2-14.7)
[2017-10-23 13:20] LABS: INR 3.3 (0.8-1.4); PROTHROMBIN TIME PATIENT 33.4 SEC (12.2-14.7)
== END 2017-10-27 | disposition home or self-care (01) ==
LOC: LAB 12:53
PROVIDERS: ATTEND Family Medicine
DX: I82.409 Acute embolism and thrombosis of unspecified deep veins of unspecified lower extremity (principal)
CPT/HCPCS: 36415; 85610

== ENCOUNTER → 2017-10-23 | Outpatient (CLI) | payer MEDICARE | LOC: RAD 11:58 | PROVIDERS: ATTEND Internal Medicine Cardiovascular Disease | DX: I70.213 Atherosclerosis of native arteries of extremities with intermittent claudication, bilateral legs (principal); R53.83 Other fatigue; I10 Essential (primary) hypertension; R06.02 Shortness of breath | CPT/HCPCS: 93923 ==

== ENCOUNTER 2017-11-13 12:39 | Outpatient (RCR) | payer MEDICARE ==
[2017-11-13 13:07] LABS: INR 3.2 (0.8-1.4); PROTHROMBIN TIME PATIENT 32.8 SEC (12.2-14.7)
== END 2017-11-18 | disposition home or self-care (01) ==
LOC: LAB 12:39
PROVIDERS: ATTEND Family Medicine
DX: I82.409 Acute embolism and thrombosis of unspecified deep veins of unspecified lower extremity (principal)
CPT/HCPCS: 36415; 85610

== ENCOUNTER → 2018-01-21 | Outpatient (CLI) | payer MEDICARE ==
--- NOTE | 2018-01-21 11:31 | Diagnostic Imaging Report ---
Indication: Routine screening. Comparison is made with prior mammogram from 02/06/2014. 2-D and 3-D bilateral screening mammography was performed with CAD Both breasts are heterogeneously dense, limiting the sensitivity of mammography. Fibronodular parenchyma pattern is present and appears similar to prior exam. Clustered calcifications have increased in the upper outer right breast posterior depth however these appear to be fairly benign. No spiculated mass or malignant appearing microcalcifications are seen. The axillae are unremarkable. Impression: BI-RADS category 2 No mammographic features suspicious for malignancy are identified. ACR BI-RADS Category 2: Benign findings. Result letter will be mailed to the patient. Note: At least 10% of breast cancer is not imaged by mammography. Dictated by: Dictated on workstation # [id number]
== END ==
LOC: RAD 10:43
PROVIDERS: ATTEND Family Medicine
DX: Z12.31 Encounter for screening mammogram for malignant neoplasm of breast (principal)
CPT/HCPCS: 77067

== ENCOUNTER 2018-01-29 13:45 | Outpatient (RCR) | payer MEDICARE ==
[2017-12-04 15:19] LABS: INR 3.1 (0.8-1.4)
--- NOTE | 2017-12-05 07:48 | Physician Query-Final Dx ---
VINOD WONG 12/05/17 0748: Clinic Account Progress/Dx Physician Query: The diagnosis on the order is I82.409 - Acute embolism and thrombos unspecified deep vein unspecifed lower extermity. Please specify - right, left or bilateral lower extermity thank you Date of Service Dec 04, 2017 at 14:46 ANDREA DUVALL DO 12/05/17 0808: Clinic Account Progress/Dx DIAGNOSIS: Diagnosis Bilateral JUDITH,VINOD Dec 05, 2017 07:48 ANDREA DUVALL DO Dec 05, 2017 08:08
[2018-01-01 14:43] LABS: PROTHROMBIN TIME PATIENT 22.6 SEC (12.2-14.7)
[2018-01-29 14:10] LABS: INR 2.6 (0.8-1.4); PROTHROMBIN TIME PATIENT 28.1 SEC (12.2-14.7)
== END 2018-03-04 | disposition home or self-care (01) ==
LOC: LAB 13:45
PROVIDERS: ATTEND Family Medicine
DX: I82.403 Acute embolism and thrombosis of unspecified deep veins of lower extremity, bilateral (principal)
CPT/HCPCS: 36415; 85610

== ENCOUNTER → 2018-02-25 | Outpatient (CLI) | payer MEDICARE ==
[2018-02-25 14:47] LABS: BASOPHILS % (AUTO) 0 % (0-10); EOSINOPHILS % (AUTO) 0 % (0-10); HEMATOCRIT 42 % (35-52); HEMOGLOBIN 13.5 G/DL (11.5-16.0); LYMPHOCYTES # (AUTO) 0.6 X 10^3 (1.0-4.0); LYMPHOCYTES % (AUTO) 11 % (12-44); MEAN CORPUSCULAR HEMOGLOBIN 32 PG (25-34); MEAN CORPUSCULAR HGB CONC 32 G/DL (32-36); MEAN CORPUSCULAR VOLUME 100 FL (80-99); MEAN PLATELET VOLUME 10.8 FL (7.4-10.4); MONOCYTES # (AUTO) 0.3 X 10^3 (0.0-1.0); MONOCYTES % (AUTO) 6 % (0-12); NEUTROPHILS # (AUTO) 4.5 X 10^3 (1.8-7.8); NEUTROPHILS % (AUTO) 82 % (42-75); PLATELET COUNT 162 10^3/uL (130-400); RED BLOOD COUNT 4.24 10^6/uL (4.35-5.85); RED CELL DISTRIBUTION WIDTH 13.1 % (10.0-14.5); WHITE BLOOD COUNT 5.5 10^3/uL (4.3-11.0)
[2018-02-25 14:56] LABS: INR 3.3 (0.8-1.4); PROTHROMBIN TIME PATIENT 33.6 SEC (12.2-14.7)
[2018-02-25 14:59] LABS: CALCIUM 9.5 MG/DL (8.5-10.1); CREATININE SERUM 1.45 MG/DL (0.60-1.30); POTASSIUM 4.3 MMOL/L (3.6-5.0)
--- NOTE | 2018-02-25 15:00 | Diagnostic Imaging Report ---
INDICATION: Weakness and respiratory infection. TIME OF EXAM: 03:06 p.m. Correlation is made with prior study from 04/21/2017. FINDINGS: Heart size is stable. There are some calcified nodules in both lungs consistent with granulomas. No infiltrates are identified. No effusion is seen. There is no pneumothorax. IMPRESSION: No acute cardiopulmonary process is detected. Dictated by: Dictated on workstation # [id number]
== END ==
LOC: RAD 14:19
PROVIDERS: ATTEND Family Medicine
DX: J98.8 Other specified respiratory disorders (principal)
CPT/HCPCS: 36415; 71046; 80048; 85025; 85610

== ENCOUNTER 2018-06-18 14:09 | Outpatient (RCR) | payer MEDICARE ==
[2018-03-26 15:32] LABS: INR 2.9 (0.8-1.4); PROTHROMBIN TIME PATIENT 30.6 SEC (12.2-14.7)
[2018-04-23 14:40] LABS: INR 2.1 (0.8-1.4); PROTHROMBIN TIME PATIENT 23.5 SEC (12.2-14.7)
[2018-05-21 14:50] LABS: PROTHROMBIN TIME PATIENT 32.7 SEC (12.2-14.7)
[2018-06-18 14:32] LABS: INR 2.1 (0.8-1.4); PROTHROMBIN TIME PATIENT 24.5 SEC (12.2-14.7)
== END 2018-06-24 | disposition home or self-care (01) ==
LOC: LAB 14:09
PROVIDERS: ATTEND Family Medicine
DX: I82.403 Acute embolism and thrombosis of unspecified deep veins of lower extremity, bilateral (principal)
CPT/HCPCS: 36415; 85610

== ENCOUNTER 2018-07-21 13:30 | Outpatient (RCR) | payer MEDICARE ==
[2018-07-21 13:55] LABS: INR 2.4 (0.8-1.4); PROTHROMBIN TIME PATIENT 27.2 SEC (12.2-14.7)
== END 2018-10-19 | disposition home or self-care (01) ==
LOC: LAB 13:30
PROVIDERS: ATTEND Family Medicine
DX: I82.409 Acute embolism and thrombosis of unspecified deep veins of unspecified lower extremity (principal)
CPT/HCPCS: 36415; 85610

== ENCOUNTER 2018-10-28 11:08 | Outpatient (RCR) | payer MEDICARE ==
[2018-08-25 14:14] LABS: INR 3.6 (0.8-1.4); PROTHROMBIN TIME PATIENT 37.2 SEC (12.2-14.7)
[2018-09-01 14:07] LABS: INR 2.4 (0.8-1.4); PROTHROMBIN TIME PATIENT 27.1 SEC (12.2-14.7)
[2018-09-30 14:35] LABS: INR 2.3 (0.8-1.4); PROTHROMBIN TIME PATIENT 25.8 SEC (12.2-14.7)
[2018-10-28 11:39] LABS: INR 1.9 (0.8-1.4); PROTHROMBIN TIME PATIENT 22.9 SEC (12.2-14.7)
== END 2018-11-23 | disposition home or self-care (01) ==
LOC: LAB 11:08
PROVIDERS: ATTEND Family Medicine
DX: I82.403 Acute embolism and thrombosis of unspecified deep veins of lower extremity, bilateral (principal)
CPT/HCPCS: 36415; 85610

== ENCOUNTER 2019-02-16 14:04 | Outpatient (RCR) | payer MEDICARE ==
[2018-11-25 14:30] LABS: INR 2.4 (0.8-1.4); PROTHROMBIN TIME PATIENT 27.3 SEC (12.2-14.7)
[2018-12-23 14:44] LABS: INR 3.1 (0.8-1.4); PROTHROMBIN TIME PATIENT 33.1 SEC (12.2-14.7)
[2019-01-20 14:43] LABS: INR 2.3 (0.8-1.4)
[2019-02-16 14:25] LABS: INR 2.6 (0.8-1.4); PROTHROMBIN TIME PATIENT 28.8 SEC (12.2-14.7)
== END 2019-02-22 | disposition home or self-care (01) ==
LOC: LAB 14:04
PROVIDERS: ATTEND Family Medicine
DX: I82.409 Acute embolism and thrombosis of unspecified deep veins of unspecified lower extremity (principal)
CPT/HCPCS: 36415; 85610

== ENCOUNTER → 2019-03-23 | Outpatient (RCR) | payer MEDICARE ==
[2019-03-23 10:45] LABS: INR 2.6 (0.8-1.4); PROTHROMBIN TIME PATIENT 29.3 SEC (12.2-14.7)
== END | disposition home or self-care (01) ==
LOC: LAB 12-23 14:17
PROVIDERS: ATTEND Family Medicine
DX: I82.409 Acute embolism and thrombosis of unspecified deep veins of unspecified lower extremity (principal)
CPT/HCPCS: 36415; 85610

== ENCOUNTER 2019-04-20 10:30 | Outpatient (RCR) | payer MEDICARE ==
[2019-04-20 10:51] LABS: INR 4.2 (0.8-1.4); PROTHROMBIN TIME PATIENT 42.5 SEC (12.2-14.7)
[2019-04-22 11:06] LABS: PROTHROMBIN TIME PATIENT 32.1 SEC (12.2-14.7)
== END 2019-07-19 | disposition home or self-care (01) ==
LOC: LAB 10:30
PROVIDERS: ATTEND Family Medicine
DX: I82.409 Acute embolism and thrombosis of unspecified deep veins of unspecified lower extremity (principal)
CPT/HCPCS: 36415; 85610

== ENCOUNTER 2020-10-12 13:28 | Emergency (ER) | payer MEDICARE ==
[~2020-10-12] VITALS: Ht 162.5 cm; Wt 65.7 kg
[~2020-10-12 13:28] MED LIST changes: -LISI10TA2 PO; +LISI10TA25 PO; -PANT40TA3 PO; +PANT40TA52 PO
--- NOTE | 2020-10-12 13:48 | ED General ---
General Stated Complaint: CONFUSION Source of Information: Patient Exam Limitations: No Limitations History of Present Illness Date Seen by Provider: Oct 12, 2020 Time Seen by Provider: 13:47 Initial Comments To ER with general weakness. She was seen by Dr. Duvall yesterday for hypertension with a blood pressure found to be 199 over 80s. He started her on 20 mg of lisinopril as her blood pressure is typically normal at 130s or 140s systolic. Today she went back for follow-up and her blood pressure was down to 110/80 but she had general weakness and it took nearly an hour to get her dressed to come to the appointment according to family. She walked in yesterday and she arrives via wheelchair today because of global weakness. No trouble speaking, no unilateral or focal weakness. She is extremely hard of hearing Timing/Duration: 1-2 Days Severity: Moderate Associated Systoms: Denies Symptoms Allergies and Home Medications Allergies Coded Allergies: Sulfa (Sulfonamide Antibiotics) (Verified Allergy, Unknown, 10/12/20) Uncoded Allergies: MOLD (Allergy, Unknown, 12/22/10) Home Medications Aspirin 81 Mg Tab.chew, 81 MG PO DAILY, (Reported) Atorvastatin Calcium 20 Mg Tablet, 20 MG PO HS, (Reported) Buspirone HCl 5 Mg Tablet, 5 MG PO TID, (Reported) Furosemide 20 Mg Tablet, 20 MG PO DAILY, (Reported) Levothyroxine Sodium 50 Mcg Tablet, 50 MCG PO DAILY, (Reported) Lisinopril 10 Mg Tablet, 10 MG PO DAILY Take one tablet daily. Prescribed by: JOSE MANUEL JONES on 05/31/16 0829 Pantoprazole Sodium 40 Mg Tablet.dr, 40 MG PO DAILY, (Reported) Potassium Chloride 20 Meq Tab.er.prt, 20 MEQ PO DAILY, (Reported) Vit C/Hai AC/Lut/Copper/Znox 1 Each Capsule, 1 CAP PO BID, (Reported) Warfarin Sodium 5 Mg Tablet, 5 MG PO Q48H, (Reported) ALTERNATES WITH WARFARIN 6 MG Warfarin Sodium 6 Mg Tablet, 6 MG PO Q48H, (Reported) ALTERNATES WITH WARFARIN 6 MG Zolpidem Tartrate 5 Mg Tablet, 5 MG PO HS PRN for SLEEP, (Reported) Patient Home Medication List Home Medication List Reviewed: Yes Review of Systems Review of Systems Constitutional: see HPI, weakness EENTM: see HPI Respiratory: no symptoms reported Cardiovascular: no symptoms reported Genitourinary: no symptoms reported Musculoskeletal: no symptoms reported Skin: no symptoms reported Psychiatric/Neurological: No Symptoms Reported; Denies Headache Hematologic/Lymphatic: No Symptoms Reported Past Kdqahtc-Dprfix-Cgltof Hx Immunizations Up To Date Tetanus Booster (TDap): Less than 5yrs Seasonal Allergies Seasonal Allergies: Yes Past Medical History Surgeries: Yes (COLONOSCOPY, WILL FILTER ) Abdominal, Appendectomy, Gallbladder, Hysterectomy, Tonsillectomy Respiratory: Yes Pulmonary Embolism Cardiac: Yes Chronic Edema/Swelling, Deep Vein Thrombosis, Hypertension Neurological: No Reproductive Disorders: No Genitourinary: No Gastrointestinal: Yes Gastroesophageal Reflux Musculoskeletal: No Endocrine: Yes Hypothyroidsim Hearing Impairment: Hard of Hearing, Hearing Aide Right, Hearing Aide Left, Bilateral Hearing Aide Cancer: No Psychosocial: Yes Anxiety, Depression Blood Disorders: Yes Family Medical History No Pertinent Family Hx Physical Exam Vital Signs Vital Signs - First Documented 10/12/20 13:58 Pulse 67 Resp 15 B/P (MAP) 121/73 (89) Pulse Ox 95 O2 Delivery Room Air Capillary Refill : Height, Weight, BMI Height: 5'5.00" Weight: 160lbs. 0.0oz. [id number]; 26.6 BMI Method:Stated General Appearance: No Apparent Distress, WD/WN Eyes: Bilateral Eye Normal Inspection, Bilateral Eye PERRL, Bilateral Eye EOMI Neck: Full Range of Motion, Normal Inspection Respiratory: Lungs Clear, Normal Breath Sounds, No Accessory Muscle Use, No Respiratory Distress Cardiovascular: Regular Rate, Rhythm, Normal Peripheral Pulses Gastrointestinal: Normal Bowel Sounds, Non Tender, Soft, Other Extremity: Normal Capillary Refill, Normal Inspection, Other (+1 pitting edema bilateral lower extremities) Neurologic/Psychiatric: Alert, Oriented x3 Skin: Normal Color, Warm/Dry Progress/Results/Core Measures Suspected Sepsis SIRS Temperature: Pulse: Respiratory Rate: Laboratory Tests 10/12/20 13:50: White Blood Count 6.0 Blood Pressure / Mean: Laboratory Tests 10/12/20 13:50: Creatinine 1.50H, INR Comment 2.5H, Platelet Count 181, Total Bilirubin 0.4 Results/Orders Lab Results Laboratory Tests Test 10/12/20 13:50 10/12/20 14:05 10/12/20 15:30 Range/Units White Blood Count 6.0 4.3-11.0 10^3/uL Red Blood Count 4.12 3.80-5.11 10^6/uL Hemoglobin 13.4 11.5-16.0 g/dL Hematocrit 42 35-52 % Mean Corpuscular Volume 103 H 80-99 fL Mean Corpuscular Hemoglobin 33 25-34 pg Mean Corpuscular Hemoglobin Concent 32 32-36 g/dL Red Cell Distribution Width 13.2 10.0-14.5 % Platelet Count 181 130-400 10^3/uL Mean Platelet Volume 10.7 9.0-12.2 fL Immature Granulocyte % (Auto) 0 % Neutrophils (%) (Auto) 84 H 42-75 % Lymphocytes (%) (Auto) 10 L 12-44 % Monocytes (%) (Auto) 5 0-12 % Eosinophils (%) (Auto) 0 0-10 % Basophils (%) (Auto) 0 0-10 % Neutrophils # (Auto) 5.1 1.8-7.8 10^3/uL Lymphocytes # (Auto) 0.6 L 1.0-4.0 10^3/uL Monocytes # (Auto) 0.3 0.0-1.0 10^3/uL Eosinophils # (Auto) 0.0 0.0-0.3 10^3/uL Basophils # (Auto) 0.0 0.0-0.1 10^3/uL Immature Granulocyte # (Auto) 0.0 0.0-0.1 10^3/uL Prothrombin Time 27.6 H 12.2-14.7 SEC INR Comment 2.5 H 0.8-1.4 Sodium Level 139 135-145 MMOL/L Potassium Level 4.6 3.6-5.0 MMOL/L Chloride Level 108 H 98-107 MMOL/L Carbon Dioxide Level 23 21-32 MMOL/L Anion Gap 8 5-14 MMOL/L Blood Urea Nitrogen 19 H 7-18 MG/DL Creatinine 1.50 H 0.60-1.30 MG/DL Estimat Glomerular Filtration Rate 33 BUN/Creatinine Ratio 13 Glucose Level 107 H 70-105 MG/DL Calcium Level 9.6 8.5-10.1 MG/DL Corrected Calcium 9.4 8.5-10.1 MG/DL Magnesium Level 2.2 1.6-2.4 MG/DL Total Bilirubin 0.4 0.1-1.0 MG/DL Aspartate Amino Transf (AST/SGOT) 15 5-34 U/L Alanine Aminotransferase (ALT/SGPT) 12 0-55 U/L Alkaline Phosphatase 69 40-136 U/L Troponin I < 0.028 <0.028 NG/ML B-Type Natriuretic Peptide 187.2 H <100.0 PG/ML Total Protein 6.7 6.4-8.2 GM/DL Albumin 4.2 3.2-4.5 GM/DL Thyroid Stimulating Hormone (TSH) 0.61 0.35-4.94 UIU/ML SARS-CoV-2 RNA (RT-PCR) Not Detected Not Detecte Urine Color YELLOW Urine Clarity CLEAR Urine pH 5.0 5-9 Urine Specific [place] >=1.030 1.016-1.022 Urine Protein TRACE H NEGATIVE Urine Glucose (UA) NEGATIVE NEGATIVE Urine Ketones NEGATIVE NEGATIVE Urine Nitrite NEGATIVE NEGATIVE Urine Bilirubin NEGATIVE NEGATIVE Urine Urobilinogen 0.2 < = 1.0 MG/DL Urine Leukocyte Esterase NEGATIVE NEGATIVE Urine RBC (Auto) NEGATIVE NEGATIVE Urine RBC NONE /HPF Urine WBC 2-5 /HPF Urine Squamous Epithelial Cells 0-2 /HPF Urine Renal Epithelial Cells NONE /HPF Urine Crystals NONE /LPF Urine Bacteria TRACE /HPF Urine Casts NONE /LPF Urine Mucus MODERATE H /LPF Urine Culture Indicated NO My Orders Orders - THANH HUITRON APRN Ct Head Wo (10/12/20 13:40) Cbc With Automated Diff (10/12/20 13:40) Comprehensive Metabolic Panel (10/12/20 13:40) Ua Culture If Indicated (10/12/20 13:40) Chest 1 View, Ap/Pa Only (10/12/20 13:40) Ed Iv/Invasive Line Start (10/12/20 13:40) Covid 19 Inhouse Test (10/12/20 13:40) BNP (10/12/20 13:40) Troponin I (10/12/20 13:40) Magnesium (10/12/20 13:40) Thyroid Stimulating Hormone (10/12/20 13:40) Ekg Tracing (10/12/20 13:40) Protime With Inr (10/12/20 13:48) Lactated Ringers (Lr 1000 Ml Iv Solution (10/12/20 15:00) Vital Signs/I&O 10/12/20 13:58 Pulse 67 Resp 15 B/P (MAP) 121/73 (89) Pulse Ox 95 O2 Delivery Room Air Capillary Refill : Departure Communication (Admissions) EKG shows a sinus rhythm rate of 67 QTC [address] segment changes no ectopy 1623-blood pressure 180/95. Incredibly hard of hearing but oriented when she understands what you are saying. Sister reports that she was checking her blood pressure every 2 or 3 minutes last night which caused it to go up. On arrival here today her blood pressure was low at 110 systolic. I suspect she got a little low on the pressure which caused her weakness. I have been able to help her out of bed and walk down the hallway myself with only holding her hand, she requires no actual assistance. I will give her a walker. Dr. Duvall will see her tomorrow in follow-up. Impression Primary Impression: Transient weakness Disposition: 01 HOME, SELF-CARE Condition: Stable Departure-Patient Inst. Decision time for Depature: 16:24 Referrals: ANDREA DUVALL DO (PCP/Family) Primary Care Physician Patient Instructions: Generalized Weakness (DC) Add. Discharge Instructions: 1. Do not check your blood pressure tonight and do not take your blood pressure medicine. See Dr. Duvall tomorrow morning. Use your walker at all times when you are up moving around. You do need to consider going to an assisted living facility, it is time to think about that. Copy Copies To 1: ANDREA DUVALL PETER J APRN Oct 12, 2020 13:48
[2020-10-12 14:05] LABS: BASOPHILS % (AUTO) 0 % (0-10); EOSINOPHILS % (AUTO) 0 % (0-10); HEMATOCRIT 42 % (35-52); HEMOGLOBIN 13.4 g/dL (11.5-16.0); LYMPHOCYTES # (AUTO) 0.6 10^3/uL (1.0-4.0); LYMPHOCYTES % (AUTO) 10 % (12-44); MEAN CORPUSCULAR HEMOGLOBIN 33 pg (25-34); MEAN CORPUSCULAR HGB CONC 32 g/dL (32-36); MEAN CORPUSCULAR VOLUME 103 fL (80-99); MEAN PLATELET VOLUME 10.7 fL (9.0-12.2); MONOCYTES # (AUTO) 0.3 10^3/uL (0.0-1.0); MONOCYTES % (AUTO) 5 % (0-12); NEUTROPHILS # (AUTO) 5.1 10^3/uL (1.8-7.8); NEUTROPHILS % (AUTO) 84 % (42-75); PLATELET COUNT 181 10^3/uL (130-400)
[2020-10-12 14:16] LABS: ALBUMIN 4.2 GM/DL (3.2-4.5)
[2020-10-12 14:17] LABS: CHLORIDE 108 MMOL/L (98-107); POTASSIUM 4.6 MMOL/L (3.6-5.0); SODIUM 139 MMOL/L (135-145)
[2020-10-12 14:18] LABS: CALCIUM 9.6 MG/DL (8.5-10.1)
[2020-10-12 14:19] LABS: GLUCOSE 107 MG/DL (70-105); TOTAL PROTEIN 6.7 GM/DL (6.4-8.2)
[2020-10-12 14:20] LABS: CARBON DIOXIDE 23 MMOL/L (21-32)
[2020-10-12 14:21] LABS: BILIRUBIN,TOTAL 0.4 MG/DL (0.1-1.0); INR 2.5 (0.8-1.4); PROTHROMBIN TIME PATIENT 27.6 SEC (12.2-14.7)
[2020-10-12 14:22] LABS: ALKALINE PHOSPHATASE 69 U/L (40-136)
[2020-10-12 14:23] LABS: GFR ESTIMATED 33
[2020-10-12 14:24] LABS: BUN/CREATININE RATIO 13
[2020-10-12 14:25] LABS: ALANINE AMINOTRANSFERASE 12 U/L (0-55)
[2020-10-12 14:26] LABS: MAGNESIUM 2.2 MG/DL (1.6-2.4)
[2020-10-12] MEDS ORDERED: LACTATED RINGERS 1,000 ML IV SCH (15:00)
--- NOTE | 2020-10-12 15:03 | Diagnostic Imaging Report ---
INDICATION: Weakness, not feeling well today. Confusion. TECHNIQUE: Single view chest 2:42 PM. CORRELATION STUDY: 02/25/2018 FINDINGS: Given patient rotation, mediastinal structures likely relatively stable. Mildly tortuous course thoracic aorta. The lungs are clear with no consolidating infiltrate. Mild biapical pleural thickening. There is no significant effusion or pneumothorax. IMPRESSION: 1. Negative for acute abnormality of the chest. Dictated by: Dictated on workstation # [id number]
--- NOTE | 2020-10-12 15:21 | Diagnostic Imaging Report ---
PROCEDURE: CT head without contrast. TECHNIQUE: Multiple contiguous axial images were obtained through the brain without the use of intravenous contrast. Auto Exposure Controls were utilized during the CT exam to meet ALARA standards for radiation dose reduction. INDICATION: Weakness. No prior studies are available for comparison. The ventricles and sulci are prominent consistent with the patient's age. No sulcal effacement or midline shift is identified. No acute intra-axial or extra-axial hemorrhage is detected. Cisterns are patent. Visualized paranasal sinuses are clear. IMPRESSION: No acute intracranial process is detected. Dictated by: Dictated on workstation # [id number]
[2020-10-12 15:50] LABS: BILIRUBIN,URINE NEGATIVE (NEGATIVE); CLARITY,URINE CLEAR; COLOR,URINE YELLOW; GLUCOSE, URINE (UA) NEGATIVE (NEGATIVE); KETONES,URINE NEGATIVE (NEGATIVE); LEUKOCYTE ESTERASE ,URINE NEGATIVE (NEGATIVE); NITRITE,URINE NEGATIVE (NEGATIVE); PROTEIN,URINE TRACE (NEGATIVE)
[2020-10-12 16:00] LABS: BACTERIA,URINE TRACE /HPF; SQUAMOUS EPITHELIAL CELL,UR 0-2 /HPF
[2020-10-12 16:40] VITALS: BP 185/90
== END 2020-10-12 16:47 | disposition home or self-care (01) ==
LOC: EDUNIT# 13:28 → ER 13:29
DX: R53.1 Weakness (principal); I10 Essential (primary) hypertension; E03.9 Hypothyroidism, unspecified; K21.9 Gastro-esophageal reflux disease without esophagitis; F41.9 Anxiety disorder, unspecified; Z86.711 Personal history of pulmonary embolism; Z79.899 Other long term (current) drug therapy; Z79.890 Hormone replacement therapy; Z86.718 Personal history of other venous thrombosis and embolism; Z79.82 Long term (current) use of aspirin; Z79.01 Long term (current) use of anticoagulants
CPT/HCPCS: 36415; 70450; 71045; 80053; 81000; 83735; 83880; 84443; 84484; 85025; 85610; 87636; 93005; 96360